=== PATIENT | female | born 1990 | race Caucasian/White ===

== ENCOUNTER 2018-05-05 19:39 | Emergency (ER) | payer BC, OTHER ==
[2018-05-05 19:46] VITALS: BP 132/86
== END 2018-05-05 20:51 | disposition home or self-care (01) ==
LOC: DL.ED 19:39
DX: S60.221A Contusion of right hand, initial encounter (principal); W22.8XXA Striking against or struck by other objects, initial encounter
CPT/HCPCS: 73130-RT; 81025; 99283

== ENCOUNTER 2019-09-07 09:37 | Inpatient (IN) | payer OTHER ==
[2019-09-07] MEDS ORDERED: Ondansetron 4 MG/2 ML SDV IV PRN (10:38)
[2019-09-07] MEDS ORDERED: Acetaminophen 325 MG Tab PO PRN (10:38)
[2019-09-07] MEDS ORDERED: Methylergonovine 0.2 MG/1 ML Amp IM PRN (10:38)
[2019-09-07] MEDS ORDERED: Naloxone 2 MG/2 ML Syringe IVPUSH PRN (10:38)
[2019-09-07] MEDS ORDERED: Tranexamic Acid 1,000 MG in Sodium Chloride 0.9% 100 ML IV PRN (10:38)
[2019-09-07] MEDS ORDERED: Misoprostol 400 MCG (4 X 100 MCG TAB) RECTAL PRN (10:38)
[2019-09-07] MEDS ORDERED: ePHEDrine 50 MG/ML SDV IVPUSH PRN (10:38)
[2019-09-07] MEDS ORDERED: diphenhydrAMINE 50 MG/ML SDV IVPUSH PRN (10:38)
[2019-09-07] MEDS ORDERED: Acetaminophen/oxyCODONE 325-5 MG Tab PO PRN (10:38)
[2019-09-07] MEDS ORDERED: Carboprost Tromethamine 250 MCG/1 ML Amp IM PRN (10:38)
[2019-09-07] MEDS ORDERED: Lactated Ringers 1,000 ML IV SCH (10:45)
[2019-09-07] MEDS ORDERED: Oxytocin/Normal Saline 60 UNIT/1,000 ML BAG ONE (10:54)
[2019-09-07] MEDS: Lactated Ringers 1,000 ML IV SCH ×2 (11:00→11:52)
[2019-09-07] MEDS ORDERED: ceFAZolin 1 GM in Premix Bag 1 BAG IV SCH (11:15)
[2019-09-07] MEDS ORDERED: Citric Acid/Sodium Citrate Solution 30 ML Cup PO ONE (12:00)
[2019-09-07] MEDS ORDERED: ceFAZolin 2 GM in Premix Bag 1 BAG IV ONE (12:00)
[2019-09-07] MEDS ORDERED: Oxytocin/Normal Saline 30 UNIT/500 ML BAG IV SCH (13:20)
--- NOTE | 2019-09-07 13:50 | OBOUT ---
DATE: 09/07/2019 TIME: 10:30 to 10:42. REASON FOR NST: 1. Intrauterine at 37-5/7 weeks, confirmed with 9-5/7 weeks' ultrasound. 2. Contractions with now cervical change. 3. Gestational hypertension versus preeclampsia with workup being done. 4. Gestational diabetes mellitus, questionable control, blood sugar is 69 upon admission. 5. History of 2 sections, request repeat low transverse section. 6. History of preeclampsia with previous pregnancies, off aspirin over the last 4 weeks per the patient's report. 7. Dilated renal sinuses, will need followup. 8. G4, P2-0-1-2. NST INTERPRETATION: During this time period, heart tone baseline is approximately 140, and there are at least two 15 x 15 beats per minute accelerations, making this strip reactive. It is also noted to be reassuring. Tocometer reveals potential 3 contractions during this time period felt by the patient. ASSESSMENT: 1. Nonstress test, reactive and reassuring. 2. Tocometer with contractions. PLAN: The patient was sent over from the clinic after H and P done through [facility]. Please see [facility] notes for further details. Blood pressure here 140/89, heart rate 86, glucose 69, temperature 98.5, and vaginal exam done during this NST does reveal her to be changed to 2-3 cm, 85% to 90% effaced, -1 station, vertex suspected, and bag of water felt. Due to the patient having contractions, cervical change, 2 previous , request repeat low transverse as well as gestational hypertension suspected versus preeclampsia, workup being currently done and having questionable control of her blood sugars stating they have been in the 180s to 190s over this last week, did discuss with the patient proceeding with repeat low transverse . I did discuss with her risks, benefits, alternatives, and complications of this including, but not limited to, infection, bleeding, damage to internal organs such as bowel, bladder, tubes, uterus, ovaries, and sometimes fetus rarely needing a blood transfusion or further surgery and rarer maternal or . She understands, agrees, and wishes to proceed. Verbal and written consent obtained. Questions were answered. We will proceed to the OR after IV has been started. The patient's medications have been given for a start time around 12:15. Sooner if there are any concerns. The patient understands and agrees with the above treatment plan. [facility] /[id number]
[2019-09-07] MEDS: Simethicone 80 MG Tab.Chew PO SCH ×3 (14:25→22:25)
[2019-09-07] MEDS ORDERED: Oxytocin/Normal Saline 30 UNIT/500 ML BAG IV ONE ×2 (15:19)
[2019-09-07] MEDS: Ketorolac 30 MG/ML SDV IVPUSH SCH (19:35)
[2019-09-07] MEDS: Docusate Sodium 100 MG Cap PO PRN (19:35)
[2019-09-08] MEDS: Ketorolac 30 MG/ML SDV IVPUSH SCH ×2 (01:22→07:58)
[2019-09-08] MEDS: Docusate Sodium 100 MG Cap PO PRN ×2 (07:58→21:02)
[2019-09-08] MEDS: Prenatal Multivitamin with Calcium/Folic Acid/Iron Tab PO SCH ×2 (07:58→08:46)
[2019-09-08] MEDS: Simethicone 80 MG Tab.Chew PO SCH ×4 (07:59→21:01)
[2019-09-08] MEDS: Acetaminophen/oxyCODONE 325-5 MG Tab PO PRN ×4 (09:07→21:02)
--- NOTE | 2019-09-08 10:09 | OR ---
DATE: 09/07/2019 PREOPERATIVE DIAGNOSES: 1. Intrauterine at 37-5/7 weeks, confirmed with 9-5/7-week ultrasound. 2. Contractions with cervical change upon admission-labor. 3. Gestational hypertension versus preeclampsia, workup being done. 4. Gestational diabetes mellitus with questionable control, poorly controlled this last week, blood sugar 69 upon admission. 5. History of 2 sections, request repeat low transverse section. 6. History of preeclampsia with previous , off aspirin over the last 4 weeks per the patient's report. 7. Dilated renal sinuses on ultrasound, will need followup. 8. G4, P2-0-1-2. POSTOPERATIVE DIAGNOSES: 1. Intrauterine at 37-5/7 weeks, confirmed by 9-5/7-week ultrasound- delivered. 2. Contractions with cervical change upon admission-labor. 3. Gestational hypertension versus preeclampsia, workup being done. 4. Gestational diabetes mellitus with questionable control, poorly controlled this last week, blood sugar 69 upon admission. 5. History of 2 sections, request repeat low transverse section. 6. History of preeclampsia previous , off aspirin over the last 4 weeks per the patient's report. 7. Dilated renal sinuses on ultrasound, will need followup. 8. G4, P2-0-1-2. 9. Scar tissue on the left below the rectus muscles adherent to the uterus requiring lysis of adhesions. 10.Difficulty delivering vertex requiring Kiwi vacuum assistance. PROCEDURES PERFORMED: NST followed by repeat low transverse with vacuum assistance for delivery. DIRECTOR OF CORPORATE STRATEGY: Mita Bruno MD. ANESTHESIA: Spinal. ESTIMATED BLOOD LOSS: 600 mL. IV FLUIDS: 1500 mL. URINE OUTPUT: 400 mL and clear yellow. Start 1240, uterine incision 1252, delivery 1254, stop 1315. FINDINGS: Male. score and weight pending. DESCRIPTION OF PROCEDURE IN DETAIL: After proper consent was obtained, the patient was brought to the operating room where spinal anesthetic was administered. Weir was placed in preop under sterile conditions. Abdomen was prepped and draped in a normal sterile fashion with the patient placed in supine position with left lateral tilt. A skin incision was then made over the lower abdomen in transverse Pfannenstiel- type fashion over previous scar. This was carried down the fascia and scored in the midline. Subcutaneous tissue was raked laterally with Benson retractor, and fascial incision was extended in a transverse fashion using curved Arevalo's. Pearl clamps x2 were used to grasp the superior aspect of the fascia and rectus muscles dissected from the fascia using sharp and blunt technique. In a similar fashion, Pearl clamps x2 were used to grasp the inferior portion of the incision and rectus and pyramidalis muscle were dissected from the fascia using sharp and blunt technique. Rectus muscles were in midline with blunt technique. Abdominal cavity was entered with blunt technique and the incision was extended superiorly and inferiorly with blunt technique. There was noted to be some scarring left portion of the uterus to the underside of the rectus muscle/peritoneal region this was subsequently lysed under direct visualization both bluntly as well as with electrocautery. Khoi O large retractor was introduced and used. Lower uterine segment was identified and curvilinear incision was made on the lower uterine segment at 1252 hours. Uterus was entered sharply. Clear bloody fluid returned. Uterine incision was then extended in transverse fashion using blunt technique. There was difficulty delivering the vertex from the incision with placenta that was anterior in line with vertex as attempts were made with delivery. care was made to gently move placenta out of way prior to vaccuum application. Kiwi vacuum was called for, applied, pumped up to the green. With fundal pressure, further descent was noted through the uterine incision, pop-off was noted. Subsequently, kiwi vacuum was called for again and reapplied and with gentle pulling pressure, fundal pressure, vertex was delivered. Anterior and posterior shoulder as well as rest of the delivered with minimal difficulty thereafter. Mouth and nares were suctioned. Cord was doubly clamped and cut, and infant was brought to team. Then, approximately 10 mL of cord blood obtained for labs. Placenta then delivered with gentle cord traction and fundal massage. Uterine cavity was cleared of all blood clots and debris with lap sponge. Oliva clamps were used to grasp the uterine incision. This was closed in a running locked fashion and tied at lateral margins with 1-0 Vicryl. Left lateral portion of incision as well as midline portion of the incision revealed bleeding and [id number] stitches were applied over this area and hemostasis reassured. First inspection of the uterine incision revealed hemostasis. Khoi O retractor was then removed and paracolic gutters were then cleared of all blood clots and debris with lap sponge. Anterior cul-de-sac was then irrigated copiously and all blood clots and debris removed. Second and final inspection of the uterine incision and anterior cul-de-sac revealed hemostasis. Rectus muscles were then reapproximated in the midline with [id number] stitch using 1-0 Vicryl. Subfascial tissues were found to be hemostatic. Fascia was closed in a running fashion and tied at lateral margins with 0 looped PDS. Subcutaneous tissue was irrigated, copiously hemostasis reassured, skin was reapproximated with medium aldo. Sterile Aquacel dressing was applied. The uterine fundus was firm and massaged at the conclusion of the case -2 below umbilicus. No immediate complications noted. Sponge, lap, and needle counts were correct. The patient received 3 g of Ancef preoperatively, Pitocin per protocol, and will receive Toradol at the conclusion of the case for pain control. Mother and are currently stable at the time of dictation. [facility] /[id number] [facility]
--- NOTE | 2019-09-08 10:18 | PN ---
DATE: 09/08/2019 Postoperative day #1, status post repeat low transverse . SUBJECTIVE: The patient is tolerating p.o., has ambulated. Weir has been removed. She is passing flatus. Pain is under control. OBJECTIVE: Vital Signs: Temperature 97.9, heart rate 92, blood pressure 108/52, respiratory rate 18. Lungs: Clear to auscultation bilaterally. Heart: S1 and S2. Regular rate and rhythm. Abdomen: Firm uterus around the umbilicus. Aquacel dressing has some shadowing that has been trace, nothing increasing in size. Urine output has been adequate. LABORATORY DATA: White cell count 8.4, hemoglobin 10.2 compared to predelivery hemoglobin of 12.2, and platelets of 2 4. ASSESSMENT AND PLAN: 1. Postoperative day #1 status post repeat low transverse section. 2. Gestational hypertension, resolving after delivery. 3. Anemia of acute blood loss, hemoglobin dropping from 12.2 to 10.2. The patient is asymptomatic, vital signs are stable. Urine output is adequate. We will continue to follow clinically and closely. Add iron today. The patient understands and agrees with the above treatment plan. We will continue to follow up clinically and closely. [facility] /[id number]
[2019-09-08] MEDS ORDERED: Lactated Ringers 1,000 ML IV ONE (13:56)
[2019-09-08] MEDS ORDERED: Ketorolac 30 MG/ML SDV IVPUSH ONE (13:56)
[2019-09-08] MEDS ORDERED: ePHEDrine 50 MG/ML SDV IV ONE (13:56)
[2019-09-08] MEDS ORDERED: Morphine PF 1 MG/ML Amp ONE (13:56)
--- NOTE | 2019-09-08 14:48 | PN ---
DATE: 09/08/2019 SUBJECTIVE: The patient notes that she felt dizzy and lightheaded after urinating. Nurse was with her, and she subsequently lost consciousness. She does remember activities before and after. Does describe feeling hot and nauseated before the loss of consciousness. Loss consciousness was less than 30 seconds. The patient brought back to the bed, had a shorter episode of lapse of consciousness on the way, and upon my arrival, she was lying in the bed talking and responding appropriately. OBJECTIVE: Vital Signs: Blood pressure 130s over 80s on last check, heart rate was in the 80s, O2 saturation was 100% with oxygen on non-rebreather. Appearance: The patient is somewhat tearful stating she has some minimal abdominal pain around the incision that seems to be improving. She denies any chest pain or shortness of breath. She states her nausea has resolved. Lungs: Clear to auscultation bilaterally. Heart: S1 and S2. Regular rate and rhythm. Abdomen: Firm uterus around the umbilicus. Aquacel dressing appears to be shallowed as it was earlier today with no evidence of increase in size. Review of the hat where she urinated does not reveal any significant clots. Extremities: MARJORIE hose are on. Pending is a CBC. ASSESSMENT AND PLAN: Vasovagal syncope, suspected. The patient did have an episode similar to this when she had her spinal placed yesterday in the OR I suspect that she is more at risk for vasovagal syncope. Discussed increasing her fluid intake, consider IV fluid bolus in the future if need be, check a CBC now and will need somebody there monitoring her with position changes if she is getting up out of the bed, use the bathroom, or even shower. Discussed delaying her shower at this point in time. We will continue to follow clinically and closely. [facility] /[id number]
[2019-09-08] MEDS: Ibuprofen 800 MG Tab PO PRN (15:51)
[2019-09-09] MEDS: Ibuprofen 800 MG Tab PO PRN ×3 (01:27→17:44)
[2019-09-09] MEDS: Acetaminophen/oxyCODONE 325-5 MG Tab PO PRN ×6 (01:27→21:46)
[2019-09-09] MEDS: Prenatal Multivitamin with Calcium/Folic Acid/Iron Tab PO SCH (09:36)
[2019-09-09] MEDS: Docusate Sodium 100 MG Cap PO PRN ×2 (09:36→17:44)
[2019-09-09] MEDS: Simethicone 80 MG Tab.Chew PO SCH ×4 (09:37→21:46)
--- NOTE | 2019-09-09 11:31 | PN ---
DATE: 09/09/2019 Postoperative day #2. SUBJECTIVE: The patient is tolerating p.o., ambulating, urinating, passing flatus. She denies any chest pain, shortness of breath, or lightheadedness. She did have a suspected vasovagal syncope yesterday, does note that she urinated prior to this and saw blood in the toilet/hat. Blood count yesterday revealed a white cell count of 9.6, hemoglobin 10.7 which is up from 10.2 the day prior, and platelets of 228. OBJECTIVE: Vital Signs: Temperature 97.6; heart rate 93; blood pressure 122/61, recheck 114/97 and then 121/82; respiratory rate 16. Lungs: Clear to auscultation bilaterally. Heart: S1 and S2. Regular rate and rhythm. Abdomen: Firm uterus, -1 below umbilicus. Aquacel dressing mild shadowing on the left side of the incision. Nothing increasing in size or saturated. Extremities: MARJORIE hose is on. No calf pain. ASSESSMENT AND PLAN: 1. Postoperative day #2 status post repeat low transverse section. 2. Vasovagal syncope, suspected. Blood counts have been stable, vital signs have been stable. Suspect related to urination and blood seen in the toilet. We will continue to follow clinically and closely. Increase fluids. Position changes slower with the patient. She understands and agrees with the above treatment plan. Possible discharge tomorrow. [facility] /[id number]
[2019-09-10] MEDS: Ibuprofen 800 MG Tab PO PRN ×2 (01:53→11:26)
[2019-09-10] MEDS: Acetaminophen/oxyCODONE 325-5 MG Tab PO PRN ×3 (01:53→11:23)
[2019-09-10] MEDS: Simethicone 80 MG Tab.Chew PO SCH ×2 (07:37→08:04)
[2019-09-10] MEDS: Docusate Sodium 100 MG Cap PO PRN (07:38)
[2019-09-10] MEDS: Prenatal Multivitamin with Calcium/Folic Acid/Iron Tab PO SCH ×2 (07:38→08:04)
[2019-09-10 07:57] VITALS: BP 134/75; PULSE 92
--- NOTE | 2019-09-10 14:35 | DISCH ---
ADMITTING DIAGNOSES: 1. Intrauterine at 37 and 5/7 weeks, confirmed with 9 and 5/7 weeks ultrasound. 2. Contractions with cervical change - labor. 3. Gestational hypertension. 4. Gestational diabetes mellitus, questionable control with blood sugar 69 upon admission. 5. History of 2 C-sections. Requests repeat low transverse . 6. History of preeclampsia with previous pregnancies, off aspirin over the last 4 weeks. 7. Dilated renal sinuses on ultrasound. 8. G4, P2-0-1-2. DISCHARGE DIAGNOSES: 1. Intrauterine at 37 and 5/7 weeks, confirmed on 9 and 5/7 weeks ultrasound - delivered. 2. Contractions with cervical change - labor. 3. Gestational hypertension. 4. Gestational diabetes mellitus, questionable control with blood sugar 69 upon admission. 5. History of 2 C-sections. Requests repeat low transverse . 6. History of preeclampsia with previous pregnancies, off aspirin over the last 4 weeks. 7. Dilated renal sinuses on ultrasound. 8. G4, P2-0-1-2. 9. Scar tissue on the left side of the uterus requiring lysis of adhesions. 10.Difficulty delivering vertex with Kiwi vacuum assistance. 11.Anemia of acute blood loss. Hemoglobin dropping down to 10.2 from 12.2. 12.Vasovagal syncope noted on postop day #1 - resolving. PROCEDURE PERFORMED: NST followed by repeat low transverse per Dr. Fischer. HISTORY OF PRESENT ILLNESS: Please see H and P. SUMMARY OF HOSPITAL COURSE: The patient was admitted on the above date with above diagnoses, underwent workup for preeclampsia, which was negative. Diagnosed with gestational hypertension, had contractions and cervical change, and gestational diabetes mellitus that was getting out of control by her history over the last week. She subsequently underwent a repeat low transverse C- section under spinal anesthesia with an EBL of 600 mL yielding a male with score 2 and 7, weighing 6 pounds 15 ounces (3140 g). Please see Op report for further details. Postop day #1, please see progress note. Same day, she did have vasovagal syncope after getting up from the bathroom after urinating and seeing blood in the zamorano. Vital signs were stable. She was followed closely. No further episodes noted. Postoperative day #2, please see progress note. Postoperative day #3, date of discharge, the patient was tolerating p.o., ambulating, urinating, passing flatus, and requesting discharge. PHYSICAL EXAMINATION: Vital Signs: Last set of vitals updated and listed in the chart, temperature 98.9; heart rate 102; blood pressure 136/82, recheck 143/78; respiratory rate 16. Lungs: clear to auscultation bilaterally. Heart: S1, S2. Regular rate rhythm. Genitourinary: Firm uterus around the umbilicus with obesity noted Aquacel dressing does have some shadowing on the left side, nothing increasing in size or saturating through. Extremities: Trace pedal edema. No calf pain. CONDITION ON DISCHARGE COMPARED TO CONDITION ON ADMISSION: Improved. DISCHARGE INSTRUCTIONS: 1. Diet as tolerated. 2. Activity: No lifting more than 20 pounds. No sit-ups, straining, and pelvic rest for the next 6 weeks with immediate return to fertility discussed with the patient. 3. Reasons to return or go to the emergency room were discussed with the patient in detail including, but not limited to, temperature greater than 100.4, foul-smelling discharge, red hot tender breasts, or increased vaginal bleeding, or increasing pain, drainage, or redness around the incision. DISCHARGE MEDICATIONS: 1. [id number] Tylenol or ibuprofen for pain, Percocet 5/325 one to two q.6 hours p.r.n., #30, no refills. Discussed the use of this medication, adverse and unwanted effects, as well as precautions with driving. 2. Iron sulfate 325 daily x6 weeks. 3. Colace 100 mg b.i.d. p.r.n. #60. 4. Dual electric breast pump. FOLLOWUP: On 09/14/[address] Fischer in the clinic with her baby before staple removal. I did discuss with the patient in the interim reasons to return or go to the emergency room in regard to her , the importance of followup, and ramifications of not doing so. She understands and agrees. [facility] /[id number]
== END 2019-09-10 13:00 | disposition home or self-care (01) | DRG 787 ==
LOC: DL.OBCHECK 09:37 → DL.OB 10:39
PROVIDERS: ADMIT Family Medicine; ATTEND Family Medicine
PROC: 10D00Z1 Extraction of Products of Conception, Low, Open Approach (ICD-10-PCS; principal; 2019-09-07)
PROC: 4A1HXCZ Monitoring of Products of Conception, Cardiac Rate, External Approach (ICD-10-PCS; 2019-09-07)
DX: O24.429 Gestational diabetes mellitus in childbirth, unspecified control (principal); D62 Acute posthemorrhagic anemia; O99.02 Anemia complicating childbirth; O34.211 Maternal care for low transverse scar from previous cesarean delivery; R55 Syncope and collapse; O13.4 Gestational [pregnancy-induced] hypertension without significant proteinuria, complicating childbirth; Z3A.37 37 weeks gestation of pregnancy; Z37.0 Single live birth; Z87.891 Personal history of nicotine dependence
CPT/HCPCS: 36415; 59025; 81003; 82565; 82570; 82962; 83615; 84156; 84450; 84460; 84520; 84550; 85027; 86850; 86900; 86901; A9270-GY; J0690; J1885; J2274; J2590; J7120

== ENCOUNTER → 2021-03-13 | Emergency (ER) | payer OTHER | LOC: DL.ED 13:44 | DX: O99.891 Other specified diseases and conditions complicating pregnancy (principal); R09.81 Nasal congestion; R42 Dizziness and giddiness; Z3A.35 35 weeks gestation of pregnancy | CPT/HCPCS: 82962; 99283 ==

== ENCOUNTER 2021-03-30 12:08 | Inpatient (IN) | payer OTHER ==
[~2021-03-30 12:08] MED LIST: Oxytocin/Normal Saline 30 UNIT/500 ML BAG IV ONE
[2021-03-30] MEDS ORDERED: Lactated Ringers 1,000 ML IV ONE ×2 (12:30→13:00)
[2021-03-30] MEDS ORDERED: Citric Acid/Sodium Citrate Solution 30 ML Cup PO ONE (12:36)
[2021-03-30] MEDS ORDERED: ceFAZolin 2 GM in Premix Bag 1 BAG IV ONE (12:36)
[2021-03-30] MEDS ORDERED: Misoprostol 400 MCG (4 X 100 MCG TAB) RECTAL PRN (12:37)
[2021-03-30] MEDS ORDERED: Naloxone 2 MG/2 ML Syringe IVPUSH PRN (12:37)
[2021-03-30] MEDS ORDERED: Methylergonovine 0.2 MG/1 ML Amp IM PRN (12:37)
[2021-03-30] MEDS ORDERED: diphenhydrAMINE 50 MG/ML SDV IVPUSH PRN (12:37)
[2021-03-30] MEDS ORDERED: Carboprost Tromethamine 250 MCG/1 ML Amp IM PRN (12:37)
[2021-03-30] MEDS ORDERED: Acetaminophen 325 MG Tab PO PRN (12:37)
[2021-03-30] MEDS ORDERED: Acetaminophen/oxyCODONE 325-5 MG Tab PO PRN (12:37)
[2021-03-30] MEDS ORDERED: Ondansetron 4 MG/2 ML SDV IVPUSH PRN (12:37)
[2021-03-30] MEDS ORDERED: Tranexamic Acid 1,000 MG in Sodium Chloride 0.9% 100 ML IV PRN (12:37)
[2021-03-30] MEDS ORDERED: ePHEDrine 50 MG/ML SDV IVPUSH PRN (12:37)
[2021-03-30] MEDS ORDERED: Oxytocin/Normal Saline 60 UNIT/1,000 ML BAG ONE (12:38)
[2021-03-30] MEDS ORDERED: Morphine PF 1 MG/ML Amp ONE (13:00)
[2021-03-30] MEDS ORDERED: Ondansetron 4 MG/2 ML SDV IV ONE (13:00)
[2021-03-30] MEDS ORDERED: Dexamethasone 4 MG/ML SDV IV ONE (13:00)
[2021-03-30] MEDS ORDERED: Sodium Bicarbonate 4.2% 2.5 MEQ/5 ML SDV ONE (13:00)
[2021-03-30] MEDS ORDERED: Oxytocin/Normal Saline 30 UNIT/500 ML BAG IV SCH (13:00)
[2021-03-30] MEDS ORDERED: Tranexamic Acid 1,000 MG in Sodium Chloride 0.9% 100 ML IV ONE (13:00)
[2021-03-30] MEDS ORDERED: ceFAZolin 1 GM in Sodium Chloride 0.9% 50 ML IV ONE (13:30)
[2021-03-30] MEDS: Lactated Ringers 1,000 ML IV SCH ×2 (14:36→23:45)
[2021-03-30] MEDS ORDERED: Ketorolac 30 MG/ML SDV IVPUSH SCH (16:30)
[2021-03-30] MEDS: Simethicone 80 MG Tab.Chew PO SCH ×2 (18:38→21:40)
[2021-03-30] MEDS: Docusate Sodium 100 MG Cap PO PRN (21:40)
[2021-03-30] MEDS: Acetaminophen/oxyCODONE 325-5 MG Tab PO PRN (22:28)
[2021-03-31] MEDS: Acetaminophen/oxyCODONE 325-5 MG Tab PO PRN ×5 (03:06→22:34)
[2021-03-31] MEDS: Ibuprofen 800 MG Tab PO PRN ×3 (03:07→21:09)
--- NOTE | 2021-03-31 06:01 | OBOUT ---
DATE: 03/30/2021 DATE AND TIME OF NST: 03/30/2021 from 12:28 to 12:45 REASON FOR NST: 1. Intrauterine at 37 and 3/7th weeks, confirmed with 8-week ultrasound. 2. Labor with contractions, cervical change today. 3. Gestational hypertension-suspected with elevated blood pressure upon admission. 4. Previous section x3, request repeat low transverse section. 5. Group B Streptococcus positive. 6. Gestational diabetes mellitus-diet controlled. 7. History of COVID in fall. 8. History of gestational hypertension, proteinuria and preeclampsia in previous pregnancies. 9. G5, P3-0-1-3. NST INTERPRETATION: During this time period, tone baseline is approximately 125 to 130, at least two 15 x 15 beats per minute accelerations making this strip reactive as well as reassuring. Tocometer reveals potential of 2 contractions felt by patient during this time. Blood pressure 144/85, heart rate 80, temperature 94. ASSESSMENT/PLAN: 1. Nonstress test - reactive and reassuring. 2. Tocometer with contractions. PLAN: With this NST, vaginal exam did reveal her to be 4 cm, which was changed from 2 to 3 cm earlier today and 1.5 -2 cm the day before and she is breathing through her contractions and now has an elevated blood pressure. I did discuss with her suspected gestational hypertension as well as labor with contractions and cervical change. Recommendation is to proceed with repeat low transverse . I did discuss the risks, benefits, alternatives and complications of including but not limited to infection, bleeding, damage to organs such as bowel, bladder, tubes, uterus, ovaries, and sometimes fetus; rarely needing a blood transfusion or further surgery, and rare maternal or . She understands, agrees, and wishes to proceed. Verbal and written consents were obtained. Questions were answered. We will proceed to the OR as soon as crew is ready and available. The patient understands and agrees with the above treatment plan. Type and screen have been ordered as well as preoperative IV antibiotics. Please see orders for further details as well. I did discuss with patient today baby being at 37+ weeks, potential need for transfer to higher level of care if there are any concerns as well as following closely. CYNTHIA [facility] #: [id number] MTDD
--- NOTE | 2021-03-31 07:40 | OR ---
DATE: 03/30/2021 PREOPERATIVE DIAGNOSES: 1. Intrauterine at 37-3/7th weeks confirmed with 8-week ultrasound. 2. Labor with contractions/cervical change. 3. Gestational hypertension. Elevated blood pressure upon admission. 4. Previous x3, request repeat low transverse . 5. Group B Streptococcus positive. 6. Gestational diabetes mellitus - diet controlled. 7. History of COVID in fall. 8. History of gestational hypertension, proteinuria, preeclampsia in the previous pregnancies. 9. History of reactive airway disease. No recent use of albuterol. 10.G5, P3-0-1-3. POSTOPERATIVE DIAGNOSES: 1. Intrauterine at 37-3/7th weeks confirmed with 8-week ultrasound. 2. Labor with contractions/cervical change. 3. Gestational hypertension. Elevated blood pressure upon admission. 4. Previous x3, request repeat low transverse . 5. GBS positive. 6. Gestational diabetes mellitus - diet controlled. 7. History of COVID in fall. 8. History of gestational hypertension, proteinuria, preeclampsia, previous pregnancies. 9. History of reactive airway disease. No recent use of albuterol. 10.G5, P3-0-1-3. 11.Intrauterine - delivered. 12.Extensive scar tissue throughout all layers after skin layer requiring meticulous work and lysis of adhesions as well as I did call Dr. Salmeron for help. 13.Uterine atony. Increase bleeding noted during the operation with TXA given. 14.Difficulty delivering vertex requiring kiwi vacuum assistance. PROCEDURE PERFORMED: Nonstress test followed by repeat low transverse C- section. ENTERPRISE APPLICATION ADMINISTRATOR: assistant passenger locomotive engineer. Mita Bruno MD, and then subsequently called in Dr. Jody Salmeron MD. ANESTHESIA: Spinal. EBL: 750 mL. IV FLUIDS: 300 mL of Pitocin, 1600 mL of Lactate Ringer. URINE OUTPUT: 75 mL and clear yellow. TIME: Start time: 1335. Uterine incision 1355. Delivery: 1356. Stop: 1427. FINDING: Male. score of 9 and 9, weight pending. DESCRIPTION OF PROCEDURE: After proper consent was obtained, the patient was brought to the operating room, where spinal anesthetic was administered. Weir was placed under preoperative sterile conditions. Abdomen was prepped and draped in normal sterile fashion. Patient was placed in supine position with left lateral tilt. A skin incision was made over lower abdomen in transverse Pfannenstiel-type fashion over previous scar. There was extensive scar tissue noted below the skin and subcutaneous tissue and along the fascial layer. The fascia was scored in the midline. Subsequently, subcutaneous tissue raked laterally with Benson retractor. Fascial incision was extended in transverse fashion using curved Arevalo's. Pearl clamps x2 were used to grasp the superior aspect of the fascia, and rectus muscle was dissected from the fascia using sharp and blunt technique. In a similar fashion, Pearl clamps x2 were used to grasp the inferior portion of incision, and rectus and pyramidalis muscle were dissected from the fascia using sharp and blunt technique. Rectus muscles were in midline with blunt technique. Abdominal cavity was then entered with blunt technique superiorly as there was extensive scar tissue around this area. This incision was extended superiorly and inferiorly with blunt technique with difficulty due to scarring. Subsequently under direct visualization, lysis of adhesions occurred along this layer and were stripped down to the layer of the uterus. During this time, there was difficulty delineating plane and Dr. Salmeron was called in for assistance. She presented and was there for the remainder of the case. Subsequently, the lower uterine segment was identified and a curvilinear incision made over lower uterine segment. Uterus was entered sharply. Clear fluid returned. Uterine incision was extended in transverse fashion using blunt technique. vertex was attempted to be delivered through the incision with difficulty. Subsequently, kiwi vacuum called for, pumped up to the green, and with gentle pulling with fundal pressure, vertex was delivered followed by rest of with minimal difficulty. Vacuum was disengaged and it was applied for less than 45 seconds. Mouth and nares were suctioned. Cord was doubly clamped and cut. was brought to team. Approximately 10 mL of cord blood was obtained for labs. Placenta was then delivered with gentle cord traction and fundal massage. There were trailing membranes which did require meticulous removal with ring forceps under direct visualization, and uterine cavity was then cleared of all blood clots and debris with lap sponge multiple times and confirmation of this. With increased bleeding at this point in time, TXA was called for and given. Subsequently, Oliva clamp was used to grasp the uterine incision. This was closed in a running locked fashion and tied at lateral margins with 1-0 Vicryl. First inspection of uterine incision revealed hemostasis. Superior to the incision, there was some areas of oozing. Irrigation ensued and electrocautery was used over these areas, and despite this, there was minimal oozing. Subsequently, Avitene sponge material was called for, cut to fit and placed on the uterus over the area of oozing under direct visualization. Hemostasis reassured. Second inspection of incision revealed hemostasis as well as anterior cul-de-sac. Rectus muscles were then reapproximated in midline with [id number] stitch using 1-0 Vicryl. Subfascial tissue found to be hemostatic. Fascia was closed in a running fashion and tied at lateral margins with 0 looped PDS. Subcutaneous tissue irrigated copiously, hemostasis reassured. Skin was reapproximated with aldo. Sterile Aquacel dressing applied. Uterine fundus was firm, massaged at the conclusion of case. -1 below umbilicus. No immediate complications were noted. Sponge, lap, and needle counts correct. Patient received 3 g of Ancef preoperatively, Pitocin per protocol and deferred Toradol at the conclusion of the case for pain control. Mother and are currently stable at the time of dictation. I did discuss with patient with extensive scar tissue, with future pregnancies, recommendation to deliver in an area with TALENT PROGRAM MANAGER and potential General Surgery and multiple OB/GYNs due to the extensive scar tissue she had. She understands and agrees with above treatment plan. [facility] /[id number]
[2021-03-31] MEDS: Docusate Sodium 100 MG Cap PO PRN ×2 (08:09→21:09)
[2021-03-31] MEDS: Prenatal Multivitamin with Calcium/Folic Acid/Iron Tab PO SCH (08:09)
[2021-03-31] MEDS: Simethicone 80 MG Tab.Chew PO SCH ×4 (08:09→21:09)
--- NOTE | 2021-03-31 10:31 | PN ---
DATE: 03/31/2021 SUBJECTIVE: No complaints at this time. She reports that her symptoms of preeclampsia that she was experiencing prior (vision changes, headache, leg swelling) have greatly improved since delivery. She denies fevers, chills, chest pain, shortness of breath, nausea, vomiting, abdominal pain. She has ambulated to the restroom, catheter is still in place. She is voiding and passing gas. Lochia is decreasing. She is tolerating p.o. She rates her pain at a 3/10, which has been controlled with Percocet and Motrin. Pain is controlled. OBJECTIVE: Vital Signs: T 98.8 F, P 91, BP 122/63, RR 16. General: Alert, no acute distress, appropriate affect. Abdomen: Soft, appropriately tender. Bandages in place over the incision and dry, without saturation. Heart: No murmur heard. Regular rate and rhythm. Lungs: Clear to auscultation bilaterally. Extremities: Nontender. Pitting edema +1. LABORATORY DATA: Labs at 0800: WBC 10.0, RBC 3.41, HGB 10.4, HCT 31.6, platelet count 218. ASSESSMENT AND PLAN: Rahel Woodward is a 31-year-old female, G5, P4-0-1-4, postop day 1 following a repeat low transverse section. 1. Intrauterine at 37-3/7 weeks' gestation confirmed with 8-week ultrasound. 2. Suspected gestational hypertension during . 3. History of 4 low transverse sections. 4. Group B Streptococcus positive. 5. Gestational diabetes, which was diet controlled. 6. History of coronavirus disease infection in the fall. 7. History of gestational hypertension and proteinuria/preeclampsia in previous pregnancies. 8. Extreme scar tissue found during repeat low transverse section. 9. Acute blood loss during surgery. Hemoglobin is stable. 10.Maternal well-being: Meeting milestones. 11.Routine cares, advance activity. May remove Weir catheter this afternoon. 12.May consider discharge home on day #2. JENY Ziegler Seen with medical student. Patient was personally seen and examined with the medical student practitioner student, Christal Novoa I reviewed the noted scribed on my behalf and necessary changes have been made to reflect my opinion on the history, exam, assessment, and plan-[facility] /[id number] MARINO
[2021-03-31] MEDS ORDERED: Ibuprofen 800 MG Tab PO PRN (12:30)
[2021-04-01] MEDS: Acetaminophen/oxyCODONE 325-5 MG Tab PO PRN ×5 (03:31→22:26)
[2021-04-01] MEDS: Ibuprofen 800 MG Tab PO PRN ×3 (05:01→21:17)
[2021-04-01] MEDS: Docusate Sodium 100 MG Cap PO PRN (08:16)
[2021-04-01] MEDS: Prenatal Multivitamin with Calcium/Folic Acid/Iron Tab PO SCH (08:16)
[2021-04-01] MEDS: Simethicone 80 MG Tab.Chew PO SCH ×4 (08:17→21:17)
--- NOTE | 2021-04-01 10:35 | PN ---
DATE: 04/01/2021 SUBJECTIVE: The patient complains of lower back pain, which is mild. She denies any vision changes, headaches, fevers, chills, nausea, vomiting, chest pain, shortness of breath, increased abdominal pain, tingling or numbness. She is ambulating. She is voiding and is passing gas. Tolerating p.o. Lochia is appropriate. Pain is controlled with Percocet. She has no other concerns at this time. OBJECTIVE: Vital Signs: T 97.9 F, P 83, BP 108/55, RR 16. General: Alert, no acute distress, appropriate affect. Heart: Regular rate and rhythm. No murmur noted. Lungs: CTA bilaterally. Abdomen: Soft, appropriately tender, fundus firm at the level of umbilicus. Incision: Dressings are saturated with serosanguineous fluid and intact. Extremities: Nontender, trace edema in left leg, +1 edema in right leg. ASSESSMENT AND PLAN: Rahel Woodward is a 31-year-old female, G5, P4-0-1-4, postop day 2 following a repeat low-transverse section. 1. Intrauterine at 37 weeks 3/7 days gestation, confirmed with an 8- week ultrasound. 2. Suspected gestational hypertension during . 3. History of 4 low-transverse sections. 4. Group B Streptococcus positive. We will continue to monitor for signs of sepsis/infection. 5. Gestational diabetes, which is diet controlled. 6. History of coronavirus disease infection in fall. 7. History of gestational hypertension and protein urea/preeclampsia in previous pregnancies. 8. Extreme scar tissue found during repeat low-transverse section. Will change dressings today due to saturation. 9. Acute blood loss during surgery. Hemoglobin is stable. 10.Maternal well-being: She is meeting milestones. 11. is at mom's bedside and breast and bottle feeding. 12.Continue routine care, then advance activity as tolerated. 13.Plan for discharge home on day #3. JENY Ziegler [facility] /[id number] MTDJewels
[2021-04-02] MEDS: Acetaminophen/oxyCODONE 325-5 MG Tab PO PRN ×3 (02:55→12:51)
[2021-04-02] MEDS: Ibuprofen 800 MG Tab PO PRN ×2 (04:55→12:50)
[2021-04-02] MEDS: Simethicone 80 MG Tab.Chew PO SCH ×2 (08:48→12:52)
[2021-04-02] MEDS: Prenatal Multivitamin with Calcium/Folic Acid/Iron Tab PO SCH (08:48)
[2021-04-02 10:58] VITALS: BP 119/69; PULSE 83
--- NOTE | 2021-04-02 12:15 | DISCH ---
Discharge date: 04/02/2021 ADMITTING DIAGNOSES: 1. Intrauterine 37 weeks' 3/7 days' gestation based upon ultrasound at 8 weeks. 2. Suspected gestational hypertension during . 3. History of 3 low-transverse sections. 4. Group B streptococcus positive. 5. Gestational diabetes, diet controlled. 6. History of coronavirus disease infection in fall. 7. History of gestational hypertension and proteinuria/preeclampsia in previous pregnancies. 8. G5, P3-0-1-3. DISCHARGE DIAGNOSES: 1. A 37 weeks' 3/7 days' intrauterine based upon ultrasound at 8 weeks. 5, now para 4-0-1-4. Status post day 3 repeat low- transverse sections under spinal anesthesia. 2. Suspected gestational hypertension during . 3. Now a total history of 4 low-transverse sections. 4. Group B streptococcus positive. 5. Gestational diabetes, diet controlled. 6. History of coronavirus disease infection in fall. 7. History of gestational hypertension and proteinuria/preeclampsia in previous pregnancies. 8. Extreme scar tissue found during repeat low-transverse section. 9. Acute blood loss during surgery. Hemoglobin stable. PROCEDURES PERFORMED: 1. Spinal anesthesia. 2. Repeat low-transverse section. BRIEF HISTORY: The patient is a 31-year-old female with the above listed diagnoses, who presented to the hospital with concerns of preeclampsia. She noticed vision changes and developed a headache, which she had in previous pregnancies. It was determined at this time that to proceed with a repeat low transverse section. HOSPITAL COURSE: Has been doing well after repeat low transverse section. Estimated blood loss was 750 mL. Symptoms of preeclampsia resolved following delivery. Pain has been relatively controlled. Bleeding and pain have been appropriate after delivery. She has remained afebrile and denies symptoms of preeclampsia including but not limited to, headache, vision changes, upper abdominal pain, difficulty breathing, weakness, paresthesias. She is and formula feeding her baby. Ambulating well and tolerating a regular diet. No other signs of complications. She is requesting discharge home today. DISCHARGE CONDITION: Good. PHYSICAL EXAMINATION: Vital Signs: T 98.5 F, P 97, BP 119/69, RR 20. Heart: Regular rate and rhythm. No murmur noted. Lungs: Clear to auscultation bilaterally with good chest expansion. Abdomen: Soft, nontender. Fundus difficult to palpate due to protuberant abdomen. Extremities: +1 pitting edema. No erythema or tenderness noted. Neurologic: No focal deficit noted. LABORATORY DATA: Hemoglobin has stabilized at 10.4, platelet count 241. DISPOSITION: Home with family. MEDICATIONS: Continue vitamin daily. Continue Lexapro 20 mg daily. Continue iron 325 mg once daily. May use Percocet as needed for pain. FOLLOWUP: To be seen in clinic for routine 2-week incision check and 6-week examination with Dr. Fischer. INSTRUCTIONS: Routine instructions for post- section delivery and instructions for . All questions and concerns were discussed and answered. The patient has verbalized understanding and is in agreement with plan. YOGESH ZieglerII [facility] /[id number] MTDD
== END 2021-04-02 13:35 | disposition home or self-care (01) | DRG 788 ==
LOC: DL.OB 12:08 → OBSVTOIN 13:56
PROVIDERS: ADMIT Family Medicine; ATTEND Family Medicine
PROC: 10D00Z1 Extraction of Products of Conception, Low, Open Approach (ICD-10-PCS; principal; 2021-03-30)
PROC: 4A1HXCZ Monitoring of Products of Conception, Cardiac Rate, External Approach (ICD-10-PCS; 2021-03-30)
DX: O14.94 Unspecified pre-eclampsia, complicating childbirth (principal); Z3A.37 37 weeks gestation of pregnancy; Z37.0 Single live birth; O34.211 Maternal care for low transverse scar from previous cesarean delivery; O99.824 Streptococcus B carrier state complicating childbirth; O24.420 Gestational diabetes mellitus in childbirth, diet controlled; O72.1 Other immediate postpartum hemorrhage; Z86.16 Personal history of COVID-19
CPT/HCPCS: 01961; 36415; 82947; 85027; 86850; 86900; 86901; 94010; A9270-GY; J0690; J1100; J2274; J2405; J2590; J7120

== ENCOUNTER 2021-05-29 19:04 | Emergency (ER) | payer SELFPAY ==
[2021-05-29] MEDS ORDERED: Cyclobenzaprine 10 MG Tab PO ONE (19:05)
[2021-05-29 19:19] VITALS: BP 141/82; PULSE 83
--- NOTE | 2021-05-29 19:49 | EDM.PDOC ---
ED HPI GENERAL MEDICAL PROBLEM - General Chief Complaint: Back Pain or Injury Stated Complaint: MIDDLE BACK PINCH NERVE PER PT Time Seen by Provider: 05/29/21 19:35 Source of Information: Reports: Patient History Limitations: Reports: No Limitations - History of Present Illness INITIAL COMMENTS - FREE TEXT/NARRATIVE: This 31 yo female patient reports to the ED with a 3 week history of middle back pain. The patient reports she started to have the pain after delivering her last child. The patient has been seen in the [facility] and was referred to physical therapy. The patient reports an increase in her pain today. The patient has been taking Tylenol (last dose 3 hours ago) and ibuprofen (last dose just prior to arrival) with no symptom relief. The patient reports driving to the ED and reports she does have someone to look after her child if needed tonight. The patient denies any trauma or known injuries. Duration: Week(s):, Constant, Getting Worse Location: Reports: Back (Middle back) Quality: Reports: Ache, Sharp, Stabbing Severity: Moderate Improves with: Reports: None Worsens with: Reports: None Context: Reports: Other Associated Symptoms: Reports: No Other Symptoms Treatments DENTAL INTERN: Reports: Acetaminophen, NSAIDS Middle Back Pain Score (Numeric/FACES): 8 - Related Data Allergies Allergy/AdvReac Type Severity Reaction Status Date / Time No Known Allergies Allergy Verified 05/29/21 19:22 Home Meds: Home Meds Vit with Ca/FA/Iron [ Plus Iron] 1 tab PO DAILY 07/31/19 [History] Escitalopram Oxalate [Lexapro] 20 mg PO DAILY 03/29/21 [History] Ferrous Sulfate 325 mg PO DAILY 03/29/21 [History] Acetaminophen/oxyCODONE [Percocet 325-5 MG] 1 tab PO Q4H PRN #20 tablet 04/01/21 [Rx] Ibuprofen [Motrin] 800 mg PO Q8H PRN tablet 04/01/21 [Rx] Past Medical History - Past Health History Medical/Surgical History: Denies Medical/Surgical History Respiratory History: Reports: Other (See Below) Other Respiratory History: RAD HAND SPINNER History: Reports: , Spontaneous , Other (See Below) Other HAND SPINNER History: IUD. Previous CS X2 Musculoskeletal History: Reports: Fracture Psychiatric History: Reports: Anxiety Endocrine/Metabolic History: Reports: Diabetes, Gestational - Infectious Disease History Infectious Disease History: Reports: Chicken Pox - Past Surgical History HEENT Surgical History: Reports: Oral Surgery, Tonsillectomy Female Surgical History: Reports: Section Social & Family History - Family History Family Medical History: No Pertinent Family History - Tobacco Use Tobacco Use Status *Q: Never Tobacco User - Caffeine Use Caffeine Use: Reports: Coffee, Energy Drinks, Soda, Tea, Other Other Caffeine Use: daily in morning - Recreational Drug Use Recreational Drug Use: No ED ROS GENERAL - Review of Systems Review Of Systems: Comprehensive ROS is negative, except as noted in HPI. ED EXAM, UPPER BACK/NECK PAIN - Physical Exam Exam: See Below Exam Limited By: No Limitations General Appearance: Alert, WD/WN, Mild Distress Eye Exam: Bilateral Eye: EOMI, Normal Inspection, PERRL Ears Exam: Normal External Exam, Normal Canal, Hearing Grossly Normal, Normal TMs Nose Exam: Normal Inspection, Normal Mucousa, No Blood Throat/Mouth Exam: Normal Inspection, Normal Lips, Normal Teeth, Normal Gums, Normal Oropharynx, Normal Voice, No Airway Compromise Neck Exam: Non-Tender, Full Range of Motion, Normal Alignment, Normal Inspection Nexus Criteria: No: Posterior, Midline Cervical Tenderness, Evidence of Intoxication, Altered Level of Consciousness, Focal Neurological Deficit, Painful Distraction Injuries Cardiovascular/Respiratory: Regular Rate, Rhythm, No M/R/G, Normal Peripheral Pulses, No JVD, Normal Breath Sounds, No Respiratory Distress GI/Abdominal: Normal Bowel Sounds, Soft, Non-Tender, No Organomegaly, No Distention, No Abnormal Bruit, No Mass (Female) Exam: Deferred Rectal (Female) Exam: Deferred Back Exam: Normal Inspection, Full Range of Motion, Paraspinal Tenderness (Mid back (T-spine)) Extremities: Normal Inspection, Normal Range of Motion, Non-Tender, No Pedal Edema, Normal Capillary Refill Neurologic: career center advisor II-XII nml As Tested, No Motor/Sensory Deficits, Alert, Normal Mood/Affect, Oriented x 3 Psychiatric: Normal Affect, Normal Mood Skin Exam: Normal Color, Warm/Dry Lymphatic: No Adenopathy Course - Vital Signs Last Recorded V/S: Last Vital Signs Temp 98.1 F 05/29/21 19:18 Pulse 83 05/29/21 19:18 Resp 20 05/29/21 19:18 BP 141/82 H 05/29/21 19:18 Pulse Ox 100 05/29/21 19:18 - Orders/Labs/Meds Labs: Laboratory Tests 05/29/21 Range/Units 19:35 Urine Color Yellow (YELLOW) Urine Appearance Clear (CLEAR) Urine pH 6.0 (5.0-9.0) Ur Specific [place] 1.025 (1.005-1.030) Urine Protein Negative (NEGATIVE) Urine Glucose (UA) Negative (NEGATIVE) Urine Ketones Negative (NEGATIVE) Urine Occult Blood Negative (NEGATIVE) Urine Nitrite Negative (NEGATIVE) Urine Bilirubin Negative (NEGATIVE) Urine Urobilinogen 0.2 (0.2-1.0) mg/dL Ur Leukocyte Esterase Negative (NEGATIVE) Departure - Departure Time of Disposition: 20:39 Disposition: Home, Self-Care 01 Condition: Fair Clinical Impression: Spasm of muscle, back - Discharge Information *PRESCRIPTION DRUG MONITORING PROGRAM REVIEWED*: Not Applicable *COPY OF PRESCRIPTION DRUG MONITORING REPORT IN PATIENT BRODIE: Not Applicable Instructions: Muscle Cramps and Spasms, [id number] Forms: ED Department Discharge Care Plan Goals: The patient was advised of the examination and lab results during the visit. The patient was discharged with Flexeril (10 mg) #2 to take 1 by mouth every 6 hours and a script for Flexeril (10 mg) #20 to take 1 by mouth at bedtime as needed. The patient was encouraged to continue to take Tylenol and ibuprofen as directed. The patient should continue to do the exercises given to her by physical therapy. Th patient may also use heat or ice to the area. If the patient has any additional symptoms or further concerns, the patient should either return to the emergency department or visit her primary care facility. Sepsis Event Note (ED) - Evaluation Sepsis Screening Result: No Definite Risk - Focused Exam Vital Signs: Vital Signs Temp Pulse Resp BP Pulse Ox 05/29/21 19:18 98.1 F 83 20 141/82 H 100
[2021-05-29] MEDS ORDERED: Cyclobenzaprine 10 MG Tab ONE (20:41)
== END 2021-05-29 20:46 | disposition home or self-care (01) ==
LOC: DL.ED 19:04
DX: M62.830 Muscle spasm of back (principal); J45.909 Unspecified asthma, uncomplicated; Z79.899 Other long term (current) drug therapy
CPT/HCPCS: 81003; 99283; A9270-GY

== ENCOUNTER 2021-06-03 01:06 | Emergency (ER) | payer SELFPAY ==
[2021-06-03 01:26] VITALS: BP 128/72; PULSE 114
[2021-06-03] MEDS ORDERED: GI Cocktail Oral Solution 30 ML PO ONE (01:46)
[2021-06-03] MEDS ORDERED: Dicyclomine 20 MG/2 ML SDV IM ONE (01:46)
[2021-06-03 01:55] LABS: ANION GAP 18.2 mEq/L (7-13); CHLORIDE,CL 105 mmol/L (98-107); SODIUM,NA 143 mmol/L (136-145)
--- NOTE | 2021-06-03 01:59 | EDM.PDOC ---
ED HPI GENERAL MEDICAL PROBLEM - General Chief Complaint: General Stated Complaint: RIB CAGE / STOMACH PAIN Time Seen by Provider: 06/03/21 01:35 Source of Information: Reports: Patient, RN, RN Notes Reviewed History Limitations: Reports: No Limitations - History of Present Illness INITIAL COMMENTS - FREE TEXT/NARRATIVE: Patient is a 31-year-old female who presents to ER with complaint of right upper quadrant, left upper quadrant pain/diaphragmatic pain that wraps around into the back. She states it is a moapa around her body. Patient states the pain began about an hour prior to arrival. States she was seen earlier this week in the ER for a pinched nerve in the back and was given muscle relaxants at that time. Patient states she took 1 of these muscle relaxants to try to help the pain, and this has not helped. Patient last ate approximately 6/7pm, states she had some different pasta salads and taco salad at a get together. Patient states she recently had a baby in March 2021, has not had a menses since the child was born. Denies any urinary symptoms, any frequency, urgency, burning with urination. Patient states she does still have her gallbladder as well as her appendix. Denies nausea. States she did have a bowel movement prior to coming in and states this was "pasty", which is not normal for her. Denies fever chills. 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 X2 Musculoskeletal History: Reports: Fracture Psychiatric History: Reports: Anxiety Endocrine/Metabolic History: Reports: Diabetes, Gestational - Infectious Disease History Infectious Disease History: Reports: Chicken Pox - Past Surgical History HEENT Surgical History: Reports: Oral Surgery, Tonsillectomy Female Surgical History: Reports: Section Social & Family History - Family History Family Medical History: No Pertinent Family History - Tobacco Use Tobacco Use Status *Q: Current Every Day Tobacco User Years of Tobacco use: 5 Packs/Tins Daily: 0.3 Used Tobacco, but Quit: No - Caffeine Use Caffeine Use: Reports: Soda Other Caffeine Use: daily in morning - Recreational Drug Use Recreational Drug Use: No ED ROS GENERAL - Review of Systems Review Of Systems: Comprehensive ROS is negative, except as noted in HPI. ED EXAM, GENERAL - Physical Exam Exam: See Below Exam Limited By: No Limitations General Appearance: Alert, WD/WN, Mild Distress Eye Exam: Bilateral Eye: EOMI, Normal Inspection Ears: Normal External Exam, Hearing Grossly Normal Nose: Normal Inspection Throat/Mouth: Normal Inspection, Normal Voice, No Airway Compromise Head: Atraumatic, Normocephalic Neck: Normal Inspection, Supple, Non-Tender, Full Range of Motion Respiratory/Chest: No Respiratory Distress, Lungs Clear, Normal Breath Sounds, No Accessory Muscle Use, Chest Non-Tender Cardiovascular: Normal Peripheral Pulses, Regular Rate, Rhythm, No Edema, No Gallop, No JVD, No Murmur, No Rub Peripheral Pulses: 2+: Radial (L), Radial (R) GI/Abdominal: Normal Bowel Sounds, Soft, No Distention, No Abnormal Bruit, No Mass, Pelvis Stable, Tender (RUQ, LUQ) (Female) Exam: Deferred Rectal (Female) Exam: Deferred Back Exam: Normal Inspection, Full Range of Motion. No: CVA Tenderness (L), CVA Tenderness (R) Extremities: Normal Inspection, Normal Range of Motion, Non-Tender, Normal Ca pillary Refill, No Pedal Edema Neurological: Alert, Oriented, CN II-XII Intact, Normal Cognition, Normal Gait, Normal Reflexes, No Motor/Sensory Deficits Psychiatric: Normal Affect, Normal Mood Skin Exam: Warm, Dry, Intact, Normal Color, No Rash Lymphatic: No Adenopathy Course - Vital Signs Last Recorded V/S: Last Vital Signs Temp 97.1 F 06/03/21 01:26 Pulse 114 H 06/03/21 01:26 Resp 20 06/03/21 01:26 BP 128/72 06/03/21 01:26 Pulse Ox 100 06/03/21 01:26 - Orders/Labs/Meds Labs: Laboratory Tests 06/03/21 06/03/2121 Range/Units 01:27 01:27 01:36 WBC 9.7 (5.0-10.0) 10^3/uL RBC 4.93 (4.2-5.4) 10^6/uL Hgb 14.6 D (12.0-16.0) g/dL Hct 42.5 (37.0-47.0) % MCV 86.2 D (80-100) fL MCH 29.6 (27.0-34.0) pg MCHC 34.4 (33.0-35.0) g/dL Plt Count 341 D (150-450) 10^3/uL Neut % (Auto) 35.6 L (42.2-75.2) % Lymph % (Auto) 54.2 H (20.5-50.1) % [place] % (Auto) 7.9 (2-8) % Eos % (Auto) 2.1 (1.0-3.0) % Baso % (Auto) 0.2 (0.0-1.0) % Sodium 143 (136-145) mmol/L Potassium 3.2 L (3.5-5.1) mmol/L Chloride 105 (98-107) mmol/L Carbon Dioxide 23 (21-32) mmol/L Anion Gap 18.2 H (7-13) mEq/L BUN 16 (7-18) mg/dL Creatinine 0.94 (0.55-1.02) mg/dL Est Cr Clr Drug Dosing 85.10 mL/min Estimated GFR (MDRD) > 60 BUN/Creatinine Ratio 17.0 (No establ ref range) Glucose 94 (70-99) mg/dL Calcium 8.9 (8.5-10.1) mg/dL Total Bilirubin 0.3 (0.2-1.0) mg/dL AST 20 (15-37) U/L ALT 41 (14-59) U/L Alkaline Phosphatase 48 (46-116) U/L C-Reactive Protein 0.8 (0.0-0.9) mg/dL Total Protein 8.0 (6.4-8.2) g/dL Albumin 4.2 (3.4-5.0) g/dL Globulin 3.8 Albumin/Globulin Ratio 1.1 Amylase 53 (25-115) U/L Lipase 131 (73-393) U/L Urine Color Yellow (YELLOW) Urine Appearance Slightly cloudy (CLEAR) Urine pH 7.5 (5.0-9.0) Ur Specific [place] 1.025 (1.005-1.030) Urine Protein Negative (NEGATIVE) Urine Glucose (UA) Negative (NEGATIVE) Urine Ketones Negative (NEGATIVE) Urine Occult Blood Negative (NEGATIVE) Urine Nitrite Negative (NEGATIVE) Urine Bilirubin Negative (NEGATIVE) Urine Urobilinogen 0.2 (0.2-1.0) mg/dL Ur Leukocyte Esterase Negative (NEGATIVE) Urine HCG, Qual 06/03/21 Range/Units 01:36 WBC (5.0-10.0) 10^3/uL RBC (4.2-5.4) 10^6/uL Hgb (12.0-16.0) g/dL Hct (37.0-47.0) % MCV (80-100) fL MCH (27.0-34.0) pg MCHC (33.0-35.0) g/dL Plt Count (150-450) 10^3/uL Neut % (Auto) (42.2-75.2) % Lymph % (Auto) (20.5-50.1) % [place] % (Auto) (2-8) % Eos % (Auto) (1.0-3.0) % Baso % (Auto) (0.0-1.0) % Sodium (136-145) mmol/L Potassium (3.5-5.1) mmol/L Chloride (98-107) mmol/L Carbon Dioxide (21-32) mmol/L Anion Gap (7-13) mEq/L BUN (7-18) mg/dL Creatinine (0.55-1.02) mg/dL Est Cr Clr Drug Dosing mL/min Estimated GFR (MDRD) BUN/Creatinine Ratio (No establ ref range) Glucose (70-99) mg/dL Calcium (8.5-10.1) mg/dL Total Bilirubin (0.2-1.0) mg/dL AST (15-37) U/L ALT (14-59) U/L Alkaline Phosphatase (46-116) U/L C-Reactive Protein (0.0-0.9) mg/dL Total Protein (6.4-8.2) g/dL Albumin (3.4-5.0) g/dL Globulin Albumin/Globulin Ratio Amylase (25-115) U/L Lipase (73-393) U/L Urine Color (YELLOW) Urine Appearance (CLEAR) Urine pH (5.0-9.0) Ur Specific [place] (1.005-1.030) Urine Protein (NEGATIVE) Urine Glucose (UA) (NEGATIVE) Urine Ketones (NEGATIVE) Urine Occult Blood (NEGATIVE) Urine Nitrite (NEGATIVE) Urine Bilirubin (NEGATIVE) Urine Urobilinogen (0.2-1.0) mg/dL Ur Leukocyte Esterase (NEGATIVE) Urine HCG, Qual Negative Meds: Medications Discontinued Medications Generic Name Dose Route Start Last Admin Trade Name Freq PRN Reason Stop Dose Admin Al Hydroxide/Mg Hydroxide 30 ml 06/03/21 01:46 06/03/21 02:01 Gi Cocktail Oral Solution 30 Ml PO 06/03/21 01:47 30 ml ONETIME ONE Administration Dicyclomine HCl 20 mg 06/03/21 01:46 06/03/21 02:01 Dicyclomine 20 Mg/2 Ml Sdv IM 06/03/21 01:47 20 mg ONETIME ONE Administration Famotidine 20 mg 06/03/21 02:24 06/03/21 02:29 Famotidine 20 Mg/2 Ml Sdv IVPUSH 06/03/21 02:25 20 mg ONETIME ONE Administration Potassium Chloride 10 meq/ 100 mls @ 100 mls/hr 06/03/21 02:24 06/03/21 02:36 Premix IV 06/03/21 03:23 100 mls/hr ONETIME ONE Administration Sodium Chloride 1,000 mls @ 999 mls/hr 06/03/21 02:25 06/03/21 02:28 Normal Saline IV 06/03/21 03:25 999 mls/hr .BOLUS ONE Administration - Re-Assessments/Exams Free Text/Narrative Re-Assessment/Exam: 06/03/21 04:04 Patient states pain is much improved at this time. Labs discussed with the patient. Pt. instructed to return to ER if she has further problems over the weekend, or follow up with her primary care provider next week for possible gallbladder ultrasound. Departure - Departure Time of Disposition: 04:06 Disposition: Home, Self-Care 01 Condition: Good Clinical Impression: Hypokalemia Abdominal pain Qualifiers: Abdominal location: upper abdomen, unspecified Qualified Code(s): R10.10 - Upper abdominal pain, unspecified GERD (gastroesophageal reflux disease) Qualifiers: Esophagitis presence: esophagitis presence not specified Qualified Code(s): K21.9 - Gastro-esophageal reflux disease without esophagitis - Discharge Information *PRESCRIPTION DRUG MONITORING PROGRAM REVIEWED*: No *COPY OF PRESCRIPTION DRUG MONITORING REPORT IN PATIENT BRODIE: No Instructions: Food Choices for Gastroesophageal Reflux Disease, Adult, [id number], Hypokalemia, Abdominal Pain, Adult, [id number], Gastroesophageal Reflux Disease, Adult, [id number] Forms: ED Department Discharge Additional Instructions: Drink plenty of water May use over the counter Omeprazole as directed Return to the ER with any worsening of problems Follow up with your primary care facility next week if still experiencing problems Sepsis Event Note (ED) - Evaluation Sepsis Screening Result: No Definite Risk - Focused Exam Vital Signs: Vital Signs Temp Pulse Resp BP Pulse Ox 06/03/21 01:26 97.1 F 114 H 20 128/72 100
[2021-06-03] MEDS ORDERED: Potassium Chloride 10 MEQ in Premix Bag 1 BAG IV ONE (02:24)
[2021-06-03] MEDS ORDERED: Famotidine 20 MG/2 ML SDV IVPUSH ONE (02:24)
[2021-06-03] MEDS ORDERED: Sodium Chloride 0.9% 1,000 ML IV ONE (02:25)
== END 2021-06-03 04:11 | disposition home or self-care (01) ==
LOC: DL.ED 01:06
DX: K21.9 Gastro-esophageal reflux disease without esophagitis (principal); E87.6 Hypokalemia; Z72.0 Tobacco use
CPT/HCPCS: 36415; 80053; 81003; 81025; 82150; 83690; 85025; 86140; 96365; 96372; 96375; 99284; A9270; J0500; J3480; J3490; J7030

== ENCOUNTER 2021-08-30 11:48 | Emergency (ER) | payer OTHER ==
[2021-08-30 12:02] VITALS: BP 134/87; PULSE 93
[2021-08-30] MEDS ORDERED: LORazepam 0.5 MG Tab PO ONE ×2 (12:07→13:17)
--- NOTE | 2021-08-30 12:47 | CR ---
PROCEDURE INFORMATION: Exam: XR Chest Exam date and time: 08/30/2021 12:14 PM Age: 31 years old Clinical indication: Other: Chest pain TECHNIQUE: Imaging protocol: XR of the chest. Views: 1 view. COMPARISON: No relevant prior studies available. FINDINGS: Lungs: Unremarkable. No consolidation. Pleural spaces: Unremarkable. No pleural effusion. No pneumothorax. Heart/Mediastinum: Unremarkable. No cardiomegaly. Bones/joints: Unremarkable. IMPRESSION: No acute findings.
[2021-08-30 12:54] LABS: ANION GAP 14.7 mEq/L (7-13); CHLORIDE,CL 104 mmol/L (98-107); SODIUM,NA 141 mmol/L (136-145)
--- NOTE | 2021-08-30 13:01 | EDM.PDOC ---
ED HPI GENERAL MEDICAL PROBLEM - General Chief Complaint: Chest Pain Stated Complaint: CHEST AND SIDE PAIN / ANXIETY Time Seen by Provider: 08/30/21 12:15 Source of Information: Reports: Patient History Limitations: Reports: No Limitations - History of Present Illness INITIAL COMMENTS - FREE TEXT/NARRATIVE: This 31 yo female patient reports to the ED due to left sided chest pain and a headache. The patient reports her symptoms started this morning and has continued to get worse throughout the day. The patient reports she does have a history of anxiety and feels like her symptoms started with an anxiety attack. The patient reports she has been taking her anxiety medications as directed. The patient reports she does have a 5 month old child at home which has increased her stress. The patient reports she is currently attempting to increase her activity level and eat more healthy. The patient reports she has not followed up with her primary care facility to reevaluate her current medications, but agrees she will need to contact them after this visit. The patient denies any drugs or alcohol. The patient reports she has taken some ibuprofen for her headache, but continues to have a pressure headache over the left frontal portion of her head. Onset: Today Duration: Constant Location: Reports: Head, Chest Quality: Reports: Ache Severity: Moderate Improves with: Reports: None Worsens with: Reports: None Context: Reports: Other Associated Symptoms: Reports: Chest Pain, Headaches Treatments PICCOLOIST: Reports: NSAIDS Head Pain Score (Numeric/FACES): 10 - Related Data Allergies Allergy/AdvReac Type Severity Reaction Status Date / Time No Known Allergies Allergy Verified 08/30/21 12:02 Home Meds: Home Meds Escitalopram Oxalate [Lexapro] 20 mg PO DAILY 03/29/21 [History] Past Medical History - Past Health History Medical/Surgical History: Denies Medical/Surgical History Respiratory History: Reports: Other (See Below) Other Respiratory History: RAD Genitourinary History: Reports: UTI, Recurrent 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 Musculoskeletal History: Reports: Fracture Psychiatric History: Reports: Anxiety Endocrine/Metabolic History: Reports: Diabetes, Gestational - Infectious Disease History Infectious Disease History: Reports: Chicken Pox - Past Surgical History HEENT Surgical History: Reports: Oral Surgery, Tonsillectomy Female Surgical History: Reports: Section Social & Family History - Family History Family Medical History: No Pertinent Family History - Tobacco Use Tobacco Use Status *Q: Current Every Day Tobacco User Years of Tobacco use: 5 Packs/Tins Daily: 1 - Caffeine Use Caffeine Use: Reports: Coffee, Soda Other Caffeine Use: daily in morning - Recreational Drug Use Recreational Drug Use: No ED ROS GENERAL - Review of Systems Review Of Systems: Comprehensive ROS is negative, except as noted in HPI. ED EXAM, GENERAL - Physical Exam Exam: See Below Exam Limited By: No Limitations General Appearance: Alert, WD/WN, Moderate Distress, Obese Eye Exam: Bilateral Eye: EOMI, Normal Inspection, PERRL Ears: Normal External Exam, Normal Canal, Hearing Grossly Normal, Normal TMs Nose: Normal Inspection, Normal Mucosa, No Blood Throat/Mouth: Normal Inspection, Normal Lips, Normal Teeth, Normal Gums, Normal Oropharynx, Normal Voice, No Airway Compromise Head: Atraumatic, Normocephalic Neck: Normal Inspection, Supple, Non-Tender, Full Range of Motion Respiratory/Chest: No Respiratory Distress, Lungs Clear, Normal Breath Sounds, No Accessory Muscle Use, Chest Non-Tender Cardiovascular: Normal Peripheral Pulses, Regular Rate, Rhythm, No Edema, No Gallop, No JVD, No Murmur, No Rub GI/Abdominal: Normal Bowel Sounds, Soft, Non-Tender, No Organomegaly, No Distention, No Abnormal Bruit, No Mass (Female) Exam: Deferred Rectal (Female) Exam: Deferred Back Exam: Normal Inspection, Full Range of Motion, NT Extremities: Normal Inspection, Normal Range of Motion, Non-Tender, Normal Capillary Refill, No Pedal Edema Neurological: Alert Psychiatric: Normal Affect, Normal Mood Skin Exam: Warm, Dry, Intact, Normal Color, No Rash Lymphatic: No Adenopathy #1 Interpretation EKG Date: 08/30/21 Time: 12:10 Rhythm: NSR Rate (Beats/Min): 83 [place]: Normal P-Wave: Present QRS: Normal ST-T: Normal QT: Normal Comparison: NA - No Prior EKG Course - Vital Signs Last Recorded V/S: Last Vital Signs Temp 97.9 F 08/30/21 11:58 Pulse 93 08/30/21 11:58 Resp 14 08/30/21 11:58 BP 134/87 08/30/21 11:58 Pulse Ox 100 08/30/21 11:58 - Orders/Labs/Meds Orders: Active Orders 24 hr Category Date Time Status EKG Documentation Completion [RC] STAT Care 08/30/21 12:00 Ordered D-DIMER QUANTITATIVE [COAG] Stat Lab 08/30/21 12:00 Ordered INR,PT,PROTHROMBIN TIME [COAG] Stat Lab 08/30/21 12:00 Ordered Labs: Laboratory Tests 08/30/21 08/30/21 08/30/21 Range/Units 12:27 12:27 12:27 WBC 7.5 (5.0-10.0) 10^3/uL RBC 4.74 (4.2-5.4) 10^6/uL Hgb 13.7 (12.0-16.0) g/dL Hct 40.7 (37.0-47.0) % MCV 85.9 (80-100) fL MCH 28.9 (27.0-34.0) pg MCHC 33.7 (33.0-35.0) g/dL Plt Count 349 (150-450) 10^3/uL Neut % (Auto) 48.4 (42.2-75.2) % Lymph % (Auto) 42.9 (20.5-50.1) % [place] % (Auto) 7.6 (2-8) % Eos % (Auto) 0.8 L (1.0-3.0) % Baso % (Auto) 0.3 (0.0-1.0) % D-Dimer, Quantitative 130 (0-400) ng/mL Sodium 141 (136-145) mmol/L Potassium 3.7 (3.5-5.1) mmol/L Chloride 104 (98-107) mmol/L Carbon Dioxide 26 (21-32) mmol/L Anion Gap 14.7 H (7-13) mEq/L BUN 12 (7-18) mg/dL Creatinine 0.86 (0.55-1.02) mg/dL Est Cr Clr Drug Dosing 93.02 mL/min Estimated GFR (MDRD) > 60 BUN/Creatinine Ratio 14.0 (No establ ref range) Glucose 94 (70-99) mg/dL Calcium 9.2 (8.5-10.1) mg/dL Total Bilirubin 0.5 (0.2-1.0) mg/dL AST 14 L (15-37) U/L ALT 27 (14-59) U/L Alkaline Phosphatase 46 (46-116) U/L Troponin I High Sens < 4 (<=51) pg/mL Total Protein 7.8 (6.4-8.2) g/dL Albumin 3.9 (3.4-5.0) g/dL Globulin 3.9 Albumin/Globulin Ratio 1.0 Meds: Medications Discontinued Medications Generic Name Dose Route Start Last Admin Trade Name Freq PRN Reason Stop Dose Admin Ketorolac Tromethamine 30 mg 08/30/21 13:17 Ketorolac 30 Mg/Ml Sdv IM 08/30/21 13:18 ONETIME ONE Lorazepam 0.5 mg 08/30/21 12:07 08/30/21 12:10 Lorazepam 0.5 Mg Tab PO 08/30/21 12:08 0.5 mg ONETIME ONE Administration Lorazepam 0.5 mg 08/30/21 13:17 Lorazepam 0.5 Mg Tab PO 08/30/21 13:18 ONETIME ONE Departure - Departure Time of Disposition: 13:19 Disposition: Home, Self-Care 01 Condition: Fair Clinical Impression: Tension headache, Anxiety about health, Nonspecific chest pain Instructions: Nonspecific Chest Pain, Adult, [id number], Tension Headache, Adult, [id number], Managing Anxiety, Adult Forms: ED Department Discharge Care Plan Goals: The patient was advised of the examination, lab, x-ray and EKG results during the visit. The patient was given Ativan for her anxiety and a dose of Toradol for her headache during the visit. The patient was encouraged to schedule an appointment with her primary care facility for further evaluation and management of her anxiety. If the patient has any additional symptoms or concerns, the patient should either return to the emergency department or visit her primary care facility. Sepsis Event Note (ED) - Focused Exam Vital Signs: Vital Signs Temp Pulse Resp BP Pulse Ox 08/30/21 11:58 97.9 F 93 14 134/87 100 - My Orders Last 24 Hours: My Active Orders 08/30/21 12:00 EKG Documentation Completion [RC] STAT D-DIMER QUANTITATIVE [COAG] Stat INR,PT,PROTHROMBIN TIME [COAG] Stat - Assessment/Plan Last 24 Hours: My Active Orders 08/30/21 12:00 EKG Documentation Completion [RC] STAT D-DIMER QUANTITATIVE [COAG] Stat INR,PT,PROTHROMBIN TIME [COAG] Stat
[2021-08-30] MEDS ORDERED: Ketorolac 30 MG/ML SDV IM ONE (13:17)
== END 2021-08-30 13:34 | disposition home or self-care (01) ==
LOC: DL.ED 11:48
DX: G44.209 Tension-type headache, unspecified, not intractable (principal); F41.9 Anxiety disorder, unspecified; Z72.0 Tobacco use
CPT/HCPCS: 36415; 71045; 80053; 84484; 85025; 85379; 85610; 96372; 99285; A9270; J1885

== ENCOUNTER 2021-10-02 05:37 | Emergency (ER) | payer OTHER ==
[2021-10-02] MEDS ORDERED: Iopamidol 612 MG/ML 100 ML Bottle IVPUSH ONE (05:55)
[2021-10-02] MEDS ORDERED: Ondansetron 4 MG/2 ML SDV IVPUSH ONE (05:56)
[2021-10-02] MEDS ORDERED: HYDROmorphone 1 MG/ML Syringe IVPUSH ONE ×2 (05:59→07:25)
[2021-10-02] MEDS ORDERED: Sodium Chloride 0.9% 1,000 ML IV ONE (06:01)
--- NOTE | 2021-10-02 06:07 | EDM.PDOC ---
<Kemar Beck - Last Filed: 10/02/21 06:02> ED HPI GENERAL MEDICAL PROBLEM - General Chief Complaint: Abdominal Pain Stated Complaint: GAS PAINS Time Seen by Provider: 10/02/21 05:55 Source of Information: Reports: Patient History Limitations: Reports: No Limitations - History of Present Illness INITIAL COMMENTS - FREE TEXT/NARRATIVE: ED with c/o RUQ pain , onset approximately 0300, nausea wth vomiting. No fever Last BM yesterday. Denies urinary symptoms, Has had similar episodes in past. no rior CT or US. LMP 3 weeks ago. Right Upper Abdomen Pain Score (Numeric/FACES): 8 - Related Data Allergies Allergy/AdvReac Type Severity Reaction Status Date / Time No Known Allergies Allergy Verified 10/02/21 05:47 Home Meds: Home Meds Escitalopram Oxalate [Lexapro] 20 mg PO DAILY 03/29/21 [History] Loperamide [Imodium] 2 mg PO 10/02/21 [History] Simethicone [Gas Relief] 10/02/21 [History] hydrOXYzine HCL [hydrOXYzine] 10/02/21 [History] Past Medical History - Past Health History Medical/Surgical History: Denies Medical/Surgical History Respiratory History: Reports: Other (See Below) Other Respiratory History: RAD Genitourinary History: Reports: UTI, Recurrent 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 Previous CS X2 Musculoskeletal History: Reports: Fracture Psychiatric History: Reports: Anxiety Endocrine/Metabolic History: Reports: Diabetes, Gestational - Infectious Disease History Infectious Disease History: Reports: Chicken Pox - Past Surgical History HEENT Surgical History: Reports: Oral Surgery, Tonsillectomy Female Surgical History: Reports: Section Social & Family History - Family History Family Medical History: No Pertinent Family History - Tobacco Use Tobacco Use Status *Q: Current Every Day Tobacco User Years of Tobacco use: 2 Packs/Tins Daily: 0.2 - Caffeine Use Caffeine Use: Reports: Coffee, Soda Other Caffeine Use: daily in morning ED ROS GENERAL - Review of Systems Review Of Systems: Comprehensive ROS is negative, except as noted in HPI. ED EXAM, GI/ABD - Physical Exam Exam: See Below Exam Limited By: No Limitations General Appearance: Alert, Moderate Distress, Obese Eyes: Bilateral: EOMI Ears: Normal External Exam, Hearing Grossly Normal Nose: Normal Inspection Throat/Mouth: Normal Inspection Head: Atraumatic, Normocephalic Neck: Normal Inspection Respiratory/Chest: No Respiratory Distress, Lungs Clear, Normal Breath Sounds GI/Abdominal Exam: Normal Bowel Sounds, Soft, Tender (RUQ). No: Guarding Extremities: Normal Inspection Neurological: Alert, Oriented, Normal Cognition Psychiatric: Normal Affect Skin Exam: Warm, Dry, Intact, Normal Color Departure - Departure Disposition: Home, Self-Care 01 Clinical Impression: Biliary colic Cholelithiasis Qualifiers: Cholelithiasis location: gallbladder Cholecystitis presence: without cholecystitis Biliary obstruction: without biliary obstruction Qualified Code(s): K80.20 - Calculus of gallbladder without cholecystitis without obstruction - Discharge Information Instructions: Biliary Colic, Adult, Cholelithiasis Forms: ED Department Discharge Additional Instructions: Rx: [place] 5mg/325mg *Do not drive while taking this medication. Rx: Zofran 4mg Clear liquid diet today. Very low fat diet until evaluated by surgeon. Dr. Fischer is making a referral for you to see a surgeon in clinic. <Alber Calhoun - Last Filed: 10/02/21 08:19> ED EXAM, GI/ABD - Physical Exam Text/Narrative:: No change to exam as documented by the PA for this encounter. Course - Vital Signs Last Recorded V/S: Last Vital Signs Temp 98.1 F 10/02/21 06:35 Pulse 68 10/02/21 06:35 Resp 18 10/02/21 06:35 BP 123/73 10/02/21 06:35 Pulse Ox 96 10/02/21 06:35 - Orders/Labs/Meds Labs: Laboratory Tests 10/02/21 10/02/21 10/02/21 Range/Units 06:00 06:20 06:26 WBC 9.6 (5.0-10.0) 10^3/uL RBC 4.88 (4.2-5.4) 10^6/uL Hgb 14.4 (12.0-16.0) g/dL Hct 42.1 (37.0-47.0) % MCV 86.3 (80-100) fL MCH 29.5 (27.0-34.0) pg MCHC 34.2 (33.0-35.0) g/dL Plt Count 295 (150-450) 10^3/uL Neut % (Auto) 61.5 (42.2-75.2) % Lymph % (Auto) 30.4 (20.5-50.1) % [place] % (Auto) 6.6 (2-8) % Eos % (Auto) 1.3 (1.0-3.0) % Baso % (Auto) 0.2 (0.0-1.0) % Sodium 142 (136-145) mmol/L Potassium 3.7 (3.5-5.1) mmol/L Chloride 104 (98-107) mmol/L Carbon Dioxide 26 (21-32) mmol/L Anion Gap 15.7 H (7-13) mEq/L BUN 14 (7-18) mg/dL Creatinine 0.76 (0.55-1.02) mg/dL Est Cr Clr Drug Dosing 101.33 mL/min Estimated GFR (MDRD) > 60 BUN/Creatinine Ratio 18.4 (No establ ref range) Glucose 104 H (70-99) mg/dL Lactic Acid (0.4-2.0) mmol/L Calcium 8.4 L (8.5-10.1) mg/dL Total Bilirubin 0.3 (0.2-1.0) mg/dL AST 14 L (15-37) U/L ALT 37 (14-59) U/L Alkaline Phosphatase 47 (46-116) U/L Total Protein 7.5 (6.4-8.2) g/dL Albumin 3.8 (3.4-5.0) g/dL Globulin 3.7 Albumin/Globulin Ratio 1.0 Amylase 67 (25-115) U/L Lipase 84 (73-393) U/L HCG, Qual Negative Urine Color Yellow (YELLOW) Urine Appearance Clear (CLEAR) Urine pH 6.0 (5.0-9.0) Ur Specific [place] >= 1.030 (1.005-1.030) Urine Protein Negative (NEGATIVE) Urine Glucose (UA) Negative (NEGATIVE) Urine Ketones Negative (NEGATIVE) Urine Occult Blood Negative (NEGATIVE) Urine Nitrite Negative (NEGATIVE) Urine Bilirubin Negative (NEGATIVE) Urine Urobilinogen 0.2 (0.2-1.0) mg/dL Ur Leukocyte Esterase Negative (NEGATIVE) 10/02/21 Range/Units 06:26 WBC (5.0-10.0) 10^3/uL RBC (4.2-5.4) 10^6/uL Hgb (12.0-16.0) g/dL Hct (37.0-47.0) % MCV (80-100) fL MCH (27.0-34.0) pg MCHC (33.0-35.0) g/dL Plt Count (150-450) 10^3/uL Neut % (Auto) (42.2-75.2) % Lymph % (Auto) (20.5-50.1) % [place] % (Auto) (2-8) % Eos % (Auto) (1.0-3.0) % Baso % (Auto) (0.0-1.0) % Sodium (136-145) mmol/L Potassium (3.5-5.1) mmol/L Chloride (98-107) mmol/L Carbon Dioxide (21-32) mmol/L Anion Gap (7-13) mEq/L BUN (7-18) mg/dL Creatinine (0.55-1.02) mg/dL Est Cr Clr Drug Dosing mL/min Estimated GFR (MDRD) BUN/Creatinine Ratio (No establ ref range) Glucose (70-99) mg/dL Lactic Acid 0.8 (0.4-2.0) mmol/L Calcium (8.5-10.1) mg/dL Total Bilirubin (0.2-1.0) mg/dL AST (15-37) U/L ALT (14-59) U/L Alkaline Phosphatase (46-116) U/L Total Protein (6.4-8.2) g/dL Albumin (3.4-5.0) g/dL Globulin Albumin/Globulin Ratio Amylase (25-115) U/L Lipase (73-393) U/L HCG, Qual Urine Color (YELLOW) Urine Appearance (CLEAR) Urine pH (5.0-9.0) Ur Specific [place] (1.005-1.030) Urine Protein (NEGATIVE) Urine Glucose (UA) (NEGATIVE) Urine Ketones (NEGATIVE) Urine Occult Blood (NEGATIVE) Urine Nitrite (NEGATIVE) Urine Bilirubin (NEGATIVE) Urine Urobilinogen (0.2-1.0) mg/dL Ur Leukocyte Esterase (NEGATIVE) Meds: Medications Discontinued Medications Generic Name Dose Route Start Last Admin Trade Name Radha PRN Reason Stop Dose Admin Famotidine 20 mg 10/02/21 07:25 10/02/21 07:38 Famotidine 20 Mg/2 Ml Sdv IVPUSH 10/02/21 07:26 20 mg ONETIME ONE Administration Hydromorphone HCl 1 mg 10/02/21 05:59 10/02/21 06:04 Hydromorphone 1 Mg/Ml Syringe IVPUSH 10/02/21 06:00 1 mg ONETIME ONE Administration Hydromorphone HCl 1 mg 10/02/21 07:25 10/02/21 07:37 Hydromorphone 1 Mg/Ml Syringe IVPUSH 10/02/21 07:26 1 mg ONETIME ONE Administration Sodium Chloride 1,000 mls @ 999 mls/hr 10/02/21 06:01 10/02/21 06:03 Normal Saline IV 10/02/21 07:01 999 mls/hr .BOLUS ONE Administration Sterile Water Confirm 10/02/21 07:30 10/02/21 07:38 Sterile Water For Injection Administered 10/02/21 07:31 10 mls/hr Dose Administration 20 mls @ as directed .ROUTE .STK-MED ONE Iopamidol 100 ml 10/02/21 05:55 10/02/21 07:25 Iopamidol 612 Mg/Ml 100 Ml Bottle IVPUSH 10/02/21 05:56 100 ml ONETIME ONE Administration Ondansetron HCl 4 mg 10/02/21 05:56 10/02/21 06:00 Ondansetron 4 Mg/2 Ml Sdv IVPUSH 10/02/21 05:57 4 mg ONETIME ONE Administration - Radiology Interpretation Free Text/Narrative:: [facility] Final Radiology Report Call: [phone] assistance Online chat: [email or web address] Name: UMESH HERRON Age: 31Years F Date: 10/02/2021 SSN: -- : 1990 Study: CT ABDOMEN PELVIS W CONT Requesting Physician: KEMAR BECK Images: [id number] Addl Studies: Provided Clinical History: abdominal pain Contrast: With Contrast Medium: Isovue Contrast Amount: 100 mL Contrast Method: Intravenous (IV) Page 1 of 2 PROCEDURE INFORMATION: Exam: CT Abdomen And Pelvis With Contrast Exam date and time: 10/02/2021 7:02 AM Age: 31 years old Clinical indication: Abdominal pain TECHNIQUE: Imaging protocol: Computed tomography of the abdomen and pelvis with contrast. Radiation optimization: All CT scans at this facility use at least one of these dose optimization techniques: automated exposure control; mA and/or kV adjustment per patient size (includes targeted exams where dose is matched to clinical indication); or iterative reconstruction. Contrast material: ISOVUE; Contrast volume: 100 ml; Contrast route: INTRAVENOUS (IV); COMPARISON: US BPP wo NST 03/16/2021 1:10 PM FINDINGS: Lungs: Bilateral dependent atelectasis. Diaphragm: Small hiatal hernia. Liver: Hepatomegaly and steatosis. Focal fat in the left hepatic lobe along the falciform ligament fissure. Gallbladder and bile ducts: Distended gallbladder. Cholelithiasis. Correlate clinically for evidence of acute cholecystitis. Pancreas: Normal. No ductal dilation. Spleen: Left upper quadrant splenules. Adrenal glands: Normal. No mass. Kidneys and ureters: Normal. No hydronephrosis. Stomach and bowel: Unremarkable. No obstruction. No mucosal thickening. Appendix: No evidence of appendicitis. UMESH HERRON | Final Radiology Report CONFIDENTIALITY STATEMENT This report is intended only for use by the referring physician, and only in accordance with law. If you received this in error, call [phone]. Page 2 of 2 Intraperitoneal space: Unremarkable. No free air. No significant fluid collection. Vasculature: Unremarkable. No abdominal aortic aneurysm. Lymph nodes: Unremarkable. No enlarged lymph nodes. Urinary bladder: Thickening of the urinary bladder wall likely reflects under distension. Reproductive: Unremarkable as visualized. Bones/joints: Mild degenerative changes at L5-S1. Soft tissues: Evidence of Caesarean section with asymmetric prominence of the right rectus sheath and stranding of the adjacent fat. IMPRESSION: Distended gallbladder. Cholelithiasis. Correlate clinically for evidence of acute cholecystitis. No bowel obstruction. Normal appendix. Hepatomegaly and steatosis. Evidence of Caesarean section with asymmetric prominence of the right rectus sheath and stranding of the adjacent fat. Thank you for allowing us to participate in the care of your patient. Dictated and Authenticated by: Barron Stewart MD 10/02/2021 7:31 AM Central Time ([place] & [place]) - Re-Assessments/Exams Free Text/Narrative Re-Assessment/Exam: 10/02/21 07:43 I assumed care of the pt from Kemar SMYTH at shift change with the pt going to CT. Pt had onset of RUQ pain at 0300HRS this morning. Pt states she has had at least 8 prior "gallbladder attacks". She last a pizza for dinner late last night. No fever, chills, cough, or chest pain. Nausea controlled by zofran, and pain improved by dilaudid. CT report indicated distended gallbladder with cholelithiasis. Departure - Departure Time of Disposition: 08:16 Condition: Good - Discharge Information *PRESCRIPTION DRUG MONITORING PROGRAM REVIEWED*: No *COPY OF PRESCRIPTION DRUG MONITORING REPORT IN PATIENT BRODIE: No Sepsis Event Note (ED) - Focused Exam Vital Signs: Vital Signs Temp Pulse Resp BP BP Pulse Ox 10/02/21 06:35 98.1 F 68 18 123/73 96 10/02/21 06:26 72 103/86 98 10/02/21 05:52 97.9 F 86 22 H 142/95 H 100
[2021-10-02 06:36] VITALS: BP 123/73; PULSE 68
[2021-10-02 06:54] LABS: ANION GAP 15.7 mEq/L (7-13); CHLORIDE,CL 104 mmol/L (98-107); SODIUM,NA 142 mmol/L (136-145)
[2021-10-02] MEDS ORDERED: Famotidine 20 MG/2 ML SDV IVPUSH ONE (07:25)
[2021-10-02] MEDS ORDERED: Water For Injection, Sterile 20 ML ONE (07:30)
--- NOTE | 2021-10-02 07:32 | CT ---
PROCEDURE INFORMATION: Exam: CT Abdomen And Pelvis With Contrast Exam date and time: 10/02/2021 7:02 AM Age: 31 years old Clinical indication: Abdominal pain TECHNIQUE: Imaging protocol: Computed tomography of the abdomen and pelvis with contrast. Radiation optimization: All CT scans at this facility use at least one of these dose optimization techniques: automated exposure control; mA and/or kV adjustment per patient size (includes targeted exams where dose is matched to clinical indication); or iterative reconstruction. Contrast material: ISOVUE; Contrast volume: 100 ml; Contrast route: INTRAVENOUS (IV); COMPARISON: US BPP wo NST 03/16/2021 1:10 PM FINDINGS: Lungs: Bilateral dependent atelectasis. Diaphragm: Small hiatal hernia. Liver: Hepatomegaly and steatosis. Focal fat in the left hepatic lobe along the falciform ligament fissure. Gallbladder and bile ducts: Distended gallbladder. Cholelithiasis. Correlate clinically for evidence of acute cholecystitis. Pancreas: Normal. No ductal dilation. Spleen: Left upper quadrant splenules. Adrenal glands: Normal. No mass. Kidneys and ureters: Normal. No hydronephrosis. Stomach and bowel: Unremarkable. No obstruction. No mucosal thickening. Appendix: No evidence of appendicitis. Intraperitoneal space: Unremarkable. No free air. No significant fluid collection. Vasculature: Unremarkable. No abdominal aortic aneurysm. Lymph nodes: Unremarkable. No enlarged lymph nodes. Urinary bladder: Thickening of the urinary bladder wall likely reflects under distension. Reproductive: Unremarkable as visualized. Bones/joints: Mild degenerative changes at L5-S1. Soft tissues: Evidence of Caesarean section with asymmetric prominence of the right rectus sheath and stranding of the adjacent fat. IMPRESSION: Distended gallbladder. Cholelithiasis. Correlate clinically for evidence of acute cholecystitis. No bowel obstruction. Normal appendix. Hepatomegaly and steatosis. Evidence of Caesarean section with asymmetric prominence of the right rectus sheath and stranding of the adjacent fat.
== END 2021-10-02 08:30 | disposition home or self-care (01) ==
LOC: DL.ED 05:37
DX: K80.70 Calculus of gallbladder and bile duct without cholecystitis without obstruction (principal); J45.909 Unspecified asthma, uncomplicated; Z72.0 Tobacco use; Z79.899 Other long term (current) drug therapy
CPT/HCPCS: 36415; 74177; 80053; 81003; 82150; 83605; 83690; 84703; 85025; 96374; 96375; 96376; 99284-25; J1170; J2405; J3490; J7030; Q9967

== ENCOUNTER 2021-10-19 17:12 | Emergency (ER) | payer OTHER ==
[2021-10-19 17:43] VITALS: BP 143/89; PULSE 95
== END 2021-10-19 18:52 | disposition left against medical advice (07) ==
LOC: DL.ED 17:12
DX: K82.9 Disease of gallbladder, unspecified (principal); Z53.21 Procedure and treatment not carried out due to patient leaving prior to being seen by health care provider

== ENCOUNTER 2021-10-21 17:46 | Emergency (ER) | payer OTHER ==
[2021-10-21] MEDS ORDERED: Ondansetron 4 MG/2 ML SDV IVPUSH ONE ×2 (19:51→23:21)
[2021-10-21] MEDS ORDERED: fentaNYL 100 MCG/2 ML SDV IVPUSH ONE (19:51)
[2021-10-21] MEDS ORDERED: Acetaminophen 500 MG Tab PO ONE (19:57)
--- NOTE | 2021-10-21 19:59 | EDM.PDOC ---
ED HPI GENERAL MEDICAL PROBLEM - General Chief Complaint: Abdominal Pain Stated Complaint: GULL BLADDER ATTACK Time Seen by Provider: 10/21/21 19:53 Source of Information: Reports: Patient History Limitations: Reports: No Limitations - History of Present Illness INITIAL COMMENTS - FREE TEXT/NARRATIVE: 31 y/o F c/o abd pn and upper R abd pn since 1230 pm today. Hx of gall bladder disease and is scheduled to have it out nov [address] Story. She reports she was prescribed narcotics here and ran out of her prescription 2 days ago. She also c/o severe nausea. The abd pn is sharp r upper quad, intermittent, occurs after eating, 09/10. Denies fever, cough chills ,drugs, etoh, ext pn, cp, db, pelvic pn Right Upper Abdomen Pain Score (Numeric/FACES): 3 - Related Data Allergies Allergy/AdvReac Type Severity Reaction Status Date / Time No Known Allergies Allergy Verified 10/21/21 19:19 Home Meds: Home Meds Escitalopram Oxalate [Lexapro] 20 mg PO DAILY 03/29/21 [History] hydrOXYzine HCL [hydrOXYzine] 10 mg PO QPM PRN 10/02/21 [History] Acetaminophen 2 tab PO Q6HR PRN 10/21/21 [History] Naproxen Sodium [Aleve] 660 mg PO ONETIME 10/21/21 [History] Past Medical History - Past Health History Medical/Surgical History: Denies Medical/Surgical History Respiratory History: Reports: Other (See Below) Other Respiratory History: RAD Gastrointestinal History: Reports: Cholelithiasis Genitourinary History: Reports: UTI, Recurrent 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 Previous CS X2 Musculoskeletal History: Reports: Fracture Psychiatric History: Reports: Anxiety Endocrine/Metabolic History: Reports: Diabetes, Gestational - Infectious Disease History Infectious Disease History: Reports: Chicken Pox - Past Surgical History HEENT Surgical History: Reports: Oral Surgery, Tonsillectomy Female Surgical History: Reports: Section Social & Family History - Family History Family Medical History: No Pertinent Family History - Tobacco Use Tobacco Use Status *Q: Never Tobacco User - Caffeine Use Caffeine Use: Reports: Coffee Other Caffeine Use: daily in morning - Recreational Drug Use Recreational Drug Use: No ED ROS GENERAL - Review of Systems Review Of Systems: Comprehensive ROS is negative, except as noted in HPI. ED EXAM, GI/ABD - Physical Exam Exam: See Below Exam Limited By: No Limitations General Appearance: Alert, No Apparent Distress Head: Atraumatic, Normocephalic Neck: Normal Inspection, Supple, Non-Tender, Full Range of Motion Respiratory/Chest: No Respiratory Distress, Lungs Clear, Normal Breath Sounds, No Accessory Muscle Use, Chest Non-Tender Cardiovascular: Normal Peripheral Pulses, Regular Rate, Rhythm, No Edema, No Gallop, No JVD, No Murmur, No Rub GI/Abdominal Exam: Soft, No Organomegaly, Tender (R upper quad, no rebound tenderness, ) (Female) Exam: Deferred Rectal (Female) Exam: Deferred Back Exam: Normal Inspection, Full Range of Motion, NT Course - Vital Signs Last Recorded V/S: Last Vital Signs Temp 98.0 F 10/21/21 22:52 Pulse 76 10/21/21 22:52 Resp 16 10/21/21 22:52 BP 120/80 10/21/21 22:52 Pulse Ox 98 10/21/21 22:52 - Orders/Labs/Meds Labs: Laboratory Tests 10/21/21 10/21/21 10/21/21 Range/Units 19:35 19:35 19:35 WBC 7.2 (5.0-10.0) 10^3/uL RBC 4.74 (4.2-5.4) 10^6/uL Hgb 13.9 (12.0-16.0) g/dL Hct 41.5 (37.0-47.0) % MCV 87.6 (80-100) fL MCH 29.3 (27.0-34.0) pg MCHC 33.5 (33.0-35.0) g/dL Plt Count 362 (150-450) 10^3/uL Neut % (Auto) 58.4 (42.2-75.2) % Lymph % (Auto) 31.0 (20.5-50.1) % [place] % (Auto) 8.6 H (2-8) % Eos % (Auto) 1.7 (1.0-3.0) % Baso % (Auto) 0.3 (0.0-1.0) % Sodium 139 (136-145) mmol/L Potassium 3.7 (3.5-5.1) mmol/L Chloride 104 (98-107) mmol/L Carbon Dioxide 23 (21-32) mmol/L Anion Gap 15.7 H (7-13) mEq/L BUN 13 (7-18) mg/dL Creatinine 0.80 (0.55-1.02) mg/dL Est Cr Clr Drug Dosing 99.99 mL/min Estimated GFR (MDRD) > 60 BUN/Creatinine Ratio 16.2 (No establ ref range) Glucose 100 H (70-99) mg/dL Lactic Acid 1.1 (0.4-2.0) mmol/L Calcium 9.1 (8.5-10.1) mg/dL Total Bilirubin 1.9 H (0.2-1.0) mg/dL AST 666 H (15-37) U/L ALT > 1000 H (14-59) U/L Alkaline Phosphatase 137 H (46-116) U/L C-Reactive Protein 1.8 H (0.0-0.9) mg/dL Total Protein 8.0 (6.4-8.2) g/dL Albumin 4.2 (3.4-5.0) g/dL Globulin 3.8 Albumin/Globulin Ratio 1.1 Amylase 38 (25-115) U/L Lipase 94 (73-393) U/L HCG, Qual Negative SARS-CoV-2 RNA (RIP) (NEGATIVE) 10/21/21 Range/Units 21:02 WBC (5.0-10.0) 10^3/uL RBC (4.2-5.4) 10^6/uL Hgb (12.0-16.0) g/dL Hct (37.0-47.0) % MCV (80-100) fL MCH (27.0-34.0) pg MCHC (33.0-35.0) g/dL Plt Count (150-450) 10^3/uL Neut % (Auto) (42.2-75.2) % Lymph % (Auto) (20.5-50.1) % [place] % (Auto) (2-8) % Eos % (Auto) (1.0-3.0) % Baso % (Auto) (0.0-1.0) % Sodium (136-145) mmol/L Potassium (3.5-5.1) mmol/L Chloride (98-107) mmol/L Carbon Dioxide (21-32) mmol/L Anion Gap (7-13) mEq/L BUN (7-18) mg/dL Creatinine (0.55-1.02) mg/dL Est Cr Clr Drug Dosing mL/min Estimated GFR (MDRD) BUN/Creatinine Ratio (No establ ref range) Glucose (70-99) mg/dL Lactic Acid (0.4-2.0) mmol/L Calcium (8.5-10.1) mg/dL Total Bilirubin (0.2-1.0) mg/dL AST (15-37) U/L ALT (14-59) U/L Alkaline Phosphatase (46-116) U/L C-Reactive Protein (0.0-0.9) mg/dL Total Protein (6.4-8.2) g/dL Albumin (3.4-5.0) g/dL Globulin Albumin/Globulin Ratio Amylase (25-115) U/L Lipase (73-393) U/L HCG, Qual SARS-CoV-2 RNA (RIP) Negative (NEGATIVE) Meds: Medications Discontinued Medications Generic Name Dose Route Start Last Admin Trade Name Freq PRN Reason Stop Dose Admin Acetaminophen 1,000 mg 10/21/21 19:57 10/21/21 20:08 Acetaminophen 500 Mg Tab PO 10/21/21 19:58 1,000 mg ONETIME ONE Administration Fentanyl 50 mcg 10/21/21 19:51 10/21/21 20:08 Fentanyl 100 Mcg/2 Ml Sdv IVPUSH 10/21/21 19:52 50 mcg ONETIME ONE Administration Protocol Hydromorphone HCl 0.5 mg 10/21/21 23:00 10/21/21 23:35 Hydromorphone 0.5 Mg/0.5 Ml Syringe IVPUSH 10/21/21 23:01 0.5 mg ONETIME ONE Administration Ondansetron HCl 4 mg 10/21/21 19:51 10/21/21 20:08 Ondansetron 4 Mg/2 Ml Sdv IVPUSH 10/21/21 19:52 4 mg ONETIME ONE Administration Ondansetron HCl 4 mg 10/21/21 23:21 10/21/21 23:35 Ondansetron 4 Mg/2 Ml Sdv IVPUSH 10/21/21 23:22 4 mg ONETIME ONE Administration - Re-Assessments/Exams Free Text/Narrative Re-Assessment/Exam: 10/21/21 23:00 I initially discussed [facility] pt with [facility] Dr. Stoddard who asked that an ultrasound be done to determine if the common bile duct was blocked in order to see if the pt required Gi or general surgery. An Ultrasound was performed which showed gallstones and a patent common bile duct. Dr. Stoddard was informed and accepted the pt for transfer to his facility or surgery. I will send her BLS ground. Departure - Departure Time of Disposition: 23:03 Disposition: DC/Tfer to [facility] 02 Condition: Serious Clinical Impression: Elevated liver enzymes Cholecystitis, acute with cholelithiasis Qualifiers: Biliary obstruction: without biliary obstruction Qualified Code(s): K80.00 - Calculus of gallbladder with acute cholecystitis without obstruction - Discharge Information *PRESCRIPTION DRUG MONITORING PROGRAM REVIEWED*: Not Applicable *COPY OF PRESCRIPTION DRUG MONITORING REPORT IN PATIENT BRODIE: Not Applicable Referrals: PCP,None [Primary Care Provider] - Forms: ED Department Discharge, Interfacility Transfer JAIMIE Sepsis Event Note (ED) - Focused Exam Vital Signs: Vital Signs Temp Pulse Resp BP Pulse Ox 10/21/21 22:52 98.0 F 76 16 120/80 98 10/21/21 21:26 98.1 F 70 18 129/82 98 10/21/21 21:02 66 18 146/100 H 99 10/21/21 20:21 97.8 F 64 20 136/88 94 L 10/21/21 19:26 97.4 F 74 22 H 112/79 98
[2021-10-21 20:23] LABS: ANION GAP 15.7 mEq/L (7-13); CHLORIDE,CL 104 mmol/L (98-107); SODIUM,NA 139 mmol/L (136-145)
--- NOTE | 2021-10-21 22:32 | US ---
PROCEDURE INFORMATION: Exam: US Abdomen, Limited; Right Upper Quadrant Exam date and time: 10/21/2021 9:49 PM Age: 31 years old Clinical indication: Abdominal pain; Acute; Additional info: Elevated alt ast bilirubin TECHNIQUE: Imaging protocol: US abdomen. Real time ultrasound with image documentation. Limited exam focused on the right upper quadrant. COMPARISON: CT Abdomen Pelvis w Cont 10/02/2021 7:02 AM FINDINGS: Liver: See "Gallbladder" finding. Gallbladder: There are multiple small gallstones. Liver is mildly echogenic Common bile duct: Normal. No stones. No dilation. Pancreas: Visualized pancreas is unremarkable. Right kidney: Normal. No mass. No hydronephrosis. IMPRESSION: 1. Cholelithiasis 2. Borderline hepatic steatosis
[2021-10-21 22:52] VITALS: BP 120/80; PULSE 76
[2021-10-21] MEDS ORDERED: HYDROmorphone 0.5 MG/0.5 ML Syringe IVPUSH ONE (23:00)
== END 2021-10-21 23:38 ==
LOC: DL.ED 17:46
DX: K80.00 Calculus of gallbladder with acute cholecystitis without obstruction (principal); R74.8 Abnormal levels of other serum enzymes; Z20.822 Contact with and (suspected) exposure to COVID-19
CPT/HCPCS: 36415; 76705; 80053; 82150; 83605; 83690; 84703; 85025; 86140; 96374; 96375; 96376; 99285-25; A9270-GY; J1170; J2405; J3010; U0002

== ENCOUNTER 2022-02-09 23:38 | Emergency (ER) | payer OTHER ==
[2022-02-10] MEDS: diphenhydrAMINE 50 MG/ML SDV IVPUSH ONE (00:15)
[2022-02-10] MEDS: Sodium Chloride 0.9% 10 ML Syringe FLUSH PRN (00:22)
[2022-02-10 00:32] VITALS: PULSE 98
[2022-02-10 00:32] LABS: ANION GAP 15.1 mEq/L (7-13); CHLORIDE,CL 102 mmol/L (98-107); ESTIMATED GFR > 60; SODIUM,NA 137 mmol/L (136-145)
[2022-02-10 00:48] VITALS: BP 124/76
== END 2022-02-10 01:04 | disposition home or self-care (01) ==
LOC: DL.ED 23:38
DX: F41.9 Anxiety disorder, unspecified (principal)
CPT/HCPCS: 36415; 80053; 85025; 93005; 93010; 96374; 99283-25; 99284; J1200; J3490

== ENCOUNTER 2022-11-19 18:00 | Emergency (ER) | payer OTHER ==
[2022-11-19 18:19] VITALS: BP 140/84; PULSE 97
[2022-11-19] MEDS: GI Cocktail Oral Solution 30 ML PO ONE (18:52)
[2022-11-19 18:58] LABS: AMPHETAMINES,URINE NEGATIVE (NEGATIVE); BARBITURATES,URINE NEGATIVE (NEGATIVE); BENZODIAZEPINE,URINE NEGATIVE (NEGATIVE); MDMA (ECSTASY), URINE NEGATIVE (NEGATIVE); METHADONE,URINE NEGATIVE (NEGATIVE); METHAMPHETAMINES,URINE NEGATIVE (NEGATIVE); OPIATES,URINE NEGATIVE (NEGATIVE); OXYCODONE,URINE NEGATIVE (NEGATIVE); PHENCYCLIDINE,URINE NEGATIVE (NEGATIVE); TCA,URINE NEGATIVE (NEGATIVE)
== END 2022-11-19 19:32 | disposition home or self-care (01) ==
LOC: DL.ED 18:00
DX: K21.9 Gastro-esophageal reflux disease without esophagitis (principal); F41.9 Anxiety disorder, unspecified; Z79.899 Other long term (current) drug therapy; Z90.49 Acquired absence of other specified parts of digestive tract
CPT/HCPCS: 80305; 81001; 81025; 99283; A9270

== ENCOUNTER 2023-11-29 22:01 | Observation (INO) | payer OTHER ==
[2023-11-29] MEDS ORDERED: Sodium Chloride 0.9% 10 ML Syringe FLUSH PRN (22:25)
[2023-11-29 22:39] LABS: HEMATOCRIT 34.7 % (37.0-47.0); HEMOGLOBIN 11.8 g/dL (12.0-16.0); MEAN CORPUSCULAR HEMOGLOBIN 30.3 pg (27.0-34.0); MEAN CORPUSCULAR VOLUME 89.2 fL (80-100); RED BLOOD CELL COUNT 3.89 10^6/uL (4.2-5.4); WHITE BLOOD CELL COUNT,WBC 9.5 10^3/uL (5.0-10.0)
[2023-11-29 22:55] LABS: ALBUMIN 2.3 g/dL (3.4-5.0); ANION GAP 16.8 mEq/L (7-13); BILIRUBIN TOTAL 0.2 mg/dL (0.2-1.0); BUN/CREATININE RATIO 13.4 (No establ ref range); CALCIUM 8.5 mg/dL (8.5-10.1); CREATININE 0.67 mg/dL (0.55-1.02); EST CRCL DRUG DOSING (CG) 121.6 mL/min; POTASSIUM,K 3.8 mmol/L (3.5-5.1); PROTEIN TOTAL,TP 6.5 g/dL (6.4-8.2); URIC ACID 4.1 mg/dL (2.6-6.0)
[2023-11-29 22:57] LABS: A/G RATIO 0.55
[2023-11-29] MEDS ORDERED: Lactated Ringers 1,000 ML IV ONE (23:00)
[2023-11-29 23:07] LABS: CREATININE,URINE RAND 30.89 mg/dL (No establ ref range)
[2023-11-29 23:21] LABS: PROTEIN CREATININE RATIO,URINE 252.5 mg/g (<150.0); PROTEIN,URINE RANDOM 7.8 mg/dL (0.0-11.9)
[2023-11-29 23:22] LABS: APPEARANCE,URINE CLEAR (CLEAR); BILIRUBIN,URINE NEGATIVE (NEGATIVE); COLOR,URINE YELLOW (YELLOW); GLUCOSE,URINE NEGATIVE (NEGATIVE); KETONES,URINE NEGATIVE (NEGATIVE); LEUKOCYTE ESTERASE,URINE NEGATIVE (NEGATIVE); NITRITE,URINE NEGATIVE (NEGATIVE); OCCULT BLOOD,URINE NEGATIVE (NEGATIVE); PROTEIN,URINE NEGATIVE (NEGATIVE); UROBILINOGEN,URINE 0.2 mg/dL (0.2-1.0)
[2023-11-29] MEDS ORDERED: hydrOXYzine HCl 25 MG Tab PO ONE (23:33)
[2023-11-30] MEDS ORDERED: Lactated Ringers 1,000 ML IV ONE (02:25)
[2023-11-30] MEDS ORDERED: Acetaminophen 325 MG Tab PO PRN (03:26)
[2023-11-30] MEDS ORDERED: Ondansetron 4 MG/2 ML SDV IVPUSH PRN (03:26)
[2023-11-30] MEDS ORDERED: Tranexamic Acid 1,000 MG in Sodium Chloride 0.9% 100 ML IV PRN (03:26)
[2023-11-30] MEDS ORDERED: Docusate Sodium 100 MG Cap PO PRN (03:26)
[2023-11-30] MEDS ORDERED: NIFEdipine 10 MG Cap PO SCH ×2 (03:30→11:00)
[2023-11-30] MEDS ORDERED: Lactated Ringers 1,000 ML IV SCH (03:30)
[2023-11-30] MEDS ORDERED: NIFEdipine 30 MG Tab.ER PO ONE (03:30)
[2023-11-30] MEDS: NIFEdipine 10 MG Cap PO SCH ×2 (07:12→07:20)
[2023-11-30 08:54] LABS: CREATININE,URINE RAND < 13.00 mg/dL (No establ ref range); PROTEIN,URINE RANDOM < 6.0 mg/dL (0.0-11.9)
[2023-11-30] MEDS ORDERED: Terbutaline 1 MG/ML SDV SUBCUT ONE (09:03)
[2023-11-30] MEDS ORDERED: Betamethasone Acetate/Betamethasone Sod Phosphate 6 MG/1 ML MDV IM ONE (09:04)
[2023-11-30 09:53] VITALS: BP 122/67; PULSE 93
== END 2023-11-30 09:30 ==
LOC: DL.OBCHECK 22:01 → DL.OB 11-30 03:26
PROVIDERS: ADMIT Family Medicine; ATTEND Family Medicine
DX: O24.415 Gestational diabetes mellitus in pregnancy, controlled by oral hypoglycemic drugs (principal); O13.3 Gestational [pregnancy-induced] hypertension without significant proteinuria, third trimester; O47.03 False labor before 37 completed weeks of gestation, third trimester; O99.013 Anemia complicating pregnancy, third trimester; O34.211 Maternal care for low transverse scar from previous cesarean delivery; O99.613 Diseases of the digestive system complicating pregnancy, third trimester; O99.343 Other mental disorders complicating pregnancy, third trimester; F41.8 Other specified anxiety disorders; K92.9 Disease of digestive system, unspecified; Z3A.34 34 weeks gestation of pregnancy
CPT/HCPCS: 36415; 76819; 80053; 81003; 82570; 82947; 83615; 84156; 84550; 85027; 87081; 87210; A9270; J0702; J3105; J7120; 96360; 96361; 96372; G0378

== ENCOUNTER 2024-04-25 10:19 | Emergency (ER) | payer OTHER | END 2024-04-25 11:15 | LOC: DL.ED 10:19 | DX: Z53.21 Procedure and treatment not carried out due to patient leaving prior to being seen by health care provider (principal) ==

== ENCOUNTER 2024-05-13 11:10 | Emergency (ER) | payer OTHER ==
[2024-05-13 11:53] LABS: BASOPHILS PERCENT AUTO 0.1 % (0.0-1.0); EOSINOPHILS PERCENT AUTO 1.3 % (1.0-3.0); HEMATOCRIT 39.5 % (37.0-47.0); LYMPHOCYTES PERCENT AUTO 40.7 % (20.5-50.1); MEAN CORPUSCULAR HEMOGLOBIN 27.5 pg (27.0-34.0); MEAN CORPUSCULAR HGB CONC 32.9 g/dL (33.0-35.0); MEAN CORPUSCULAR VOLUME 83.7 fL (80-100); MONOCYTES PERCENT AUTO 7.4 % (2-8); NEUTROPHILS PERCENT AUTO 50.5 % (42.2-75.2); PLATELET COUNT,PLT 397 10^3/uL (150-450); RED BLOOD CELL COUNT 4.72 10^6/uL (4.2-5.4); WHITE BLOOD CELL COUNT,WBC 7.7 10^3/uL (5.0-10.0)
[2024-05-13] MEDS: Sodium Chloride 0.9% 1,000 ML IV ONE (11:53)
[2024-05-13 11:57] VITALS: BP 118/79; PULSE 83
[2024-05-13 12:17] LABS: A/G RATIO 0.9; ALANINE AMINOTRANSFERASE,ALT 33 U/L (14-59); ALBUMIN 3.8 g/dL (3.4-5.0); ALKALINE PHOSPHATASE 52 U/L (46-116); ANION GAP 13.9 mEq/L (7-13); ASPARTATE AMNIOTRANSFERASE,AST 16 U/L (15-37); BILIRUBIN TOTAL 0.3 mg/dL (0.2-1.0); BLOOD UREA NITROGEN,BUN 12 mg/dL (7-18); BUN/CREATININE RATIO 13.5 (No establ ref range); CALCIUM 9.1 mg/dL (8.5-10.1); CARBON DIOXIDE,CO2 25 mmol/L (21-32); CHLORIDE,CL 105 mmol/L (98-107); CREATININE 0.89 mg/dL (0.55-1.02); EST CRCL DRUG DOSING (CG) 87.43 mL/min; ESTIMATED GFR 88 mL/min (>=60); ETHANOL BLOOD MEDICAL < 3 mg/dL (0); GLUCOSE RANDOM 102 mg/dL (70-99); MAGNESIUM 2.1 mg/dL (1.8-2.4); POTASSIUM,K 3.9 mmol/L (3.5-5.1); PROTEIN TOTAL,TP 7.8 g/dL (6.4-8.2); SODIUM,NA 140 mmol/L (136-145)
[2024-05-13 12:59] LABS: APPEARANCE,URINE CLEAR (CLEAR); BILIRUBIN,URINE NEGATIVE (NEGATIVE); GLUCOSE,URINE NEGATIVE (NEGATIVE); KETONES,URINE NEGATIVE (NEGATIVE); LEUKOCYTE ESTERASE,URINE NEGATIVE (NEGATIVE); NITRITE,URINE NEGATIVE (NEGATIVE); OCCULT BLOOD,URINE NEGATIVE (NEGATIVE); PH,URINE 7.5 (5.0-9.0); PROTEIN,URINE NEGATIVE (NEGATIVE); UROBILINOGEN,URINE 0.2 mg/dL (0.2-1.0)
[2024-05-13 13:00] LABS: COLOR,URINE LIGHT YELLOW (YELLOW)
== END 2024-05-13 13:54 | disposition home or self-care (01) ==
LOC: DL.ED 11:10
DX: E86.0 Dehydration (principal); J30.2 Other seasonal allergic rhinitis; F17.290 Nicotine dependence, other tobacco product, uncomplicated; K21.9 Gastro-esophageal reflux disease without esophagitis; Z90.49 Acquired absence of other specified parts of digestive tract; Z86.16 Personal history of COVID-19; Z79.899 Other long term (current) drug therapy
CPT/HCPCS: 36415; 70450; 71045; 80053; 80307; 81003; 81025; 82947; 83735; 84484; 85025; 85379; 87635; 87804; 93005; 96360; 99285; J7030; 93010; 99284; U0002